=== PATIENT | male | born 1950 | race Caucasian/White ===

== ENCOUNTER 2017-06-10 16:22 | Inpatient (IN) | payer OTHER, MEDICARE, BC ==
[~2017-06-10] VITALS: Ht 177.8 cm; Wt 101.6 kg
[2017-06-10] VITALS (10 sets, daily range): BP systolic 88–122; BP diastolic 50–66; PULSE 62–79; RESP 16–32; TEMP 97.8–98.7; O2SAT 94–98
[2017-06-10] MEDS ORDERED: MORPHINE SULFATE 8 MG/ML INJ ONE (16:38)
[2017-06-10] MEDS ORDERED: ONDANSETRON HCL 4 MG/2 ML VIAL ONE (16:38)
[2017-06-10] MEDS ORDERED: PHYTONADIONE INJ 10 MG in SODIUM CHLORIDE 0.9% INJ 50 ML IV ONE (16:45)
[2017-06-10] MEDS ORDERED: SODIUM CHLORIDE 0.9% FLUSH 10 ML FLUSH IV FLUSH PRN (16:45)
[2017-06-10] MEDS ORDERED: NALOXONE HCL 0.4 MG/ML AMP IV PUSH PRN (16:45)
[2017-06-10] MEDS ORDERED: ENALAPRILAT 1.25 MG/ML VIAL IV PUSH PRN (16:45)
[2017-06-10] MEDS ORDERED: MORPHINE SULFATE 30 MG/30 ML PCA IV SCH (16:45)
[2017-06-10] MEDS ORDERED: ACETAMINOPHEN 325 MG TAB PO PRN (16:45)
[2017-06-10] MEDS ORDERED: MAGNESIUM HYDROXIDE SUSP 30 ML CUP PO PRN (16:45)
[2017-06-10] MEDS ORDERED: CHLORHEXIDINE GLUCONATE 2 % 1 PACK (2 CLOTHS) TOP PRN (16:45)
[2017-06-10] MEDS ORDERED: MISCELLANEOUS NURSING INFORMATION XX SCH (16:45)
[2017-06-10] MEDS ORDERED: ONDANSETRON HCL 4 MG/2 ML VIAL IV PUSH PRN (16:45)
[2017-06-10] MEDS: PCA - TOTAL MG MORPHINE DELIVERED PER SHIFT SCH ×2 (16:45→22:00)
[2017-06-10 16:46] LABS: AUTOMATED NEUTROPHIL # 10.6 TH/MM3 (1.8-7.7); BASOPHIL # 0.1 TH/MM3 (0-0.2); BASOPHIL % 0.6 % (0.0-2.0); EOSINOPHIL # 0.2 TH/MM3 (0-0.4); EOSINOPHIL % 1.2 % (0.0-4.0); HEMO FLAGS DIFF FINAL; LYMPH % 27.3 % (9.0-44.0); LYMPHOCYTE # 4.4 TH/MM3 (1.0-4.8); MEAN CELL VOLUME 92.5 FL (80.0-100.0); MEAN CORPUSCULAR HEMOGLOBIN 29.9 PG (27.0-34.0); MEAN CORPUSCULAR HGB CONC 32.3 % (32.0-36.0); MONO % 4.8 % (0.0-8.0); NEUT % 66.1 % (16.0-70.0); PLATELET COUNT 153 TH/MM3 (150-450); RED BLOOD COUNT 4.22 MIL/MM3 (4.50-5.90)
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
[2017-06-10 16:52] LABS: I-STAT POTASSIUM 3.3 MMOL/L (3.5-4.9)
[2017-06-10 17:01] LABS: APTT (PATIENT) 31.5 SEC (24.3-30.1); INTERNATIONAL NORMALIZED RATIO 2.8 RATIO; PROTHROMBIN TIME - PATIENT 31.9 SEC (9.8-11.6)
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
[2017-06-10] MEDS ORDERED: IOHEXOL 350 MG/ML 10 ML VIAL (for RAD DIAG) IVCONTRAST ONE (17:09)
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
[2017-06-10] MEDS ORDERED: PROTHROMBIN COMPLEX CONC INJ 2,500 UNITS in SYRINGE/BAG 1 EA IV ONE (17:15)
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
[2017-06-10] MEDS ORDERED: POTASSIUM PHOSPHATE MONOBASIC 500 MG TAB PO PRN (17:45)
[2017-06-10] MEDS ORDERED: MAGNESIUM OXIDE 400 MG TAB PO PRN (17:45)
[2017-06-10] MEDS ORDERED: POTASSIUM PHOSPHATE MONOBASIC 500 MG TAB PO/TUBE PRN (17:45)
[2017-06-10] MEDS ORDERED: POTASSIUM CHLORIDE 20 MEQ PWD PACKET PO PRN (17:45)
[2017-06-10] MEDS ORDERED: MAGNESIUM SULFATE INJ 2 GM in SODIUM CHLORIDE 0.9% INJ 96 ML IV PRN (17:45)
[2017-06-10] MEDS ORDERED: POTASSIUM PHOSPHATE INJ 30 MMOL in SODIUM CHLOR 0.9% 250 ML INJ 250 ML IV PRN (17:45)
[2017-06-10] MEDS ORDERED: GLUCAGON 1 MG/ML VIAL OTHER PRN (17:45)
[2017-06-10] MEDS ORDERED: MAGNESIUM SULFATE INJ 4 GM in SODIUM CHLORIDE 0.9% INJ 92 ML IV PRN (17:45)
[2017-06-10] MEDS: LIDOCAINE HCL 5% PATCH T-DERMAL SCH (17:45)
[2017-06-10] MEDS ORDERED: SODIUM PHOSPHATE INJ 30 MMOL in SODIUM CHLOR 0.9% 250 ML INJ 240 ML IV PRN (17:45)
[2017-06-10] MEDS ORDERED: DEXTROSE 50% IN WATER 50 ML VIAL(D50) IV PUSH PRN (17:45)
[2017-06-10] MEDS ORDERED: BISACODYL 10 MG SUPP RECTAL PRN (17:45)
[2017-06-10] MEDS ORDERED: POTASSIUM CHLOR 40 MEQ PREMIX 100 ML IV PRN ×2 (17:45)
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
[2017-06-10] MEDS ORDERED: PANTOPRAZOLE SODIUM 40 MG VIAL IVP SCH (18:00)
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
[2017-06-10] MEDS: SODIUM CHLOR 0.9% 1000 ML INJ 1,000 ML IV SCH (18:46)
[2017-06-10 18:58] LABS: MAGNESIUM 1.7 MG/DL (1.5-2.5)
[2017-06-10] MEDS ORDERED: SODIUM CHLOR 0.9% 250 ML INJ 250 ML IV ONE (19:00)
[2017-06-10 19:27] LABS: AUTOMATED NEUTROPHIL # 25.8 TH/MM3 (1.8-7.7); BASOPHIL # 0.1 TH/MM3 (0-0.2); BASOPHIL % 0.3 % (0.0-2.0); EOSINOPHIL % 0.1 % (0.0-4.0); HEMATOCRIT 30.5 % (39.0-51.0); HEMO FLAGS DIFF FINAL; LYMPH % 6.5 % (9.0-44.0); LYMPHOCYTE # 1.9 TH/MM3 (1.0-4.8); MEAN CELL VOLUME 92.8 FL (80.0-100.0); MEAN CORPUSCULAR HEMOGLOBIN 29.6 PG (27.0-34.0); MEAN CORPUSCULAR HGB CONC 31.9 % (32.0-36.0); MONO % 6.2 % (0.0-8.0); NEUT % 86.9 % (16.0-70.0); PLATELET COUNT 119 TH/MM3 (150-450); RED BLOOD COUNT 3.28 MIL/MM3 (4.50-5.90); RED CELL DISTRIBUTION WIDTH 15.1 % (11.6-17.2); WHITE BLOOD COUNT 29.7 TH/MM3 (4.0-11.0)
[2017-06-10 19:40] LABS: APTT (PATIENT) 25.9 SEC (24.3-30.1); INTERNATIONAL NORMALIZED RATIO 1.2 RATIO; PROTHROMBIN TIME - PATIENT 13.3 SEC (9.8-11.6)
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
[2017-06-10] MEDS ORDERED: MIDAZOLAM HCL 2 MG/2 ML VIAL ONE (20:04)
[2017-06-10] MEDS ORDERED: GELATIN 12 MM/7 MM FOAM I-ARTERIAL ONE (20:30)
[2017-06-10] MEDS ORDERED: IODIXANOL 320 MG/ML 50 ML VIAL (for RAD SPEC) I-ARTERIAL ONE (20:30)
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
[2017-06-10] MEDS: DOCUSATE SODIUM 50 MG/SENNA 8.6 MG TAB PO SCH (21:00)
[2017-06-10] MEDS: BACITRACIN TOP OINT 15 GM TUBE TOP SCH (21:00)
[2017-06-10] MEDS: REMOVE OLD PATCH T-DERMAL SCH (21:00)
[2017-06-10] MEDS ORDERED: DOCUSATE SODIUM 100 MG CAP PO SCH (21:00)
[2017-06-10] MEDS: HYDROmorphone HCL PF 0.5 MG/0.5 ML SYRINGE IV PUSH PRN (21:49)
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
[2017-06-10] MEDS: METHOCARBAMOL 500 MG TAB PO SCH (23:02)
[2017-06-10] MEDS: FAMOTIDINE 20 MG/2 ML VIAL IV PUSH SCH (23:02)
[2017-06-10] MEDS: INSULIN NovoLIN REGULAR SUPPLEMENTAL SCALE SQ SCH (23:03)
[2017-06-11] VITALS (15 sets, daily range): BP systolic 124–163; BP diastolic 66–103; PULSE 73–104; RESP 29–35; TEMP 97.8–98.7; O2SAT 90–96
[2017-06-11] MEDS: HYDROmorphone HCL PF 0.5 MG/0.5 ML SYRINGE IV PUSH PRN ×2 (00:42→19:55)
[2017-06-11 01:01] LABS: HEMATOCRIT 31.9 % (39.0-51.0); REVIEW FLAG FINAL
[2017-06-11] MEDS: SODIUM CHLOR 0.9% 1000 ML INJ 1,000 ML IV SCH ×3 (02:55→23:45)
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
[2017-06-11] MEDS: CHLORHEXIDINE GLUCONATE 2 % 1 PACK (2 CLOTHS) TOP SCH (04:00)
[2017-06-11] MEDS ORDERED: ACETAMINOPHEN/HYDROcodone 325 MG/10 MG TAB PO PRN ×3 (04:30→08:30)
[2017-06-11] MEDS ORDERED: MORPHINE SULFATE 2 MG/ML INJ IV PUSH PRN (04:30)
[2017-06-11] MEDS: METHOCARBAMOL 500 MG TAB PO SCH ×3 (04:45→21:47)
[2017-06-11 05:14] LABS: BASOPHIL % 0.2 % (0.0-2.0); HEMO FLAGS DIFF FINAL; LYMPH % 3.6 % (9.0-44.0); LYMPHOCYTE # 0.8 TH/MM3 (1.0-4.8); MEAN CELL VOLUME 88.4 FL (80.0-100.0); MEAN CORPUSCULAR HEMOGLOBIN 28.7 PG (27.0-34.0); MEAN CORPUSCULAR HGB CONC 32.4 % (32.0-36.0); MONO % 5.5 % (0.0-8.0); NEUT % 90.7 % (16.0-70.0); PLATELET COUNT 103 TH/MM3 (150-450); RED BLOOD COUNT 3.73 MIL/MM3 (4.50-5.90); RED CELL DISTRIBUTION WIDTH 18.2 % (11.6-17.2); WHITE BLOOD COUNT 20.9 TH/MM3 (4.0-11.0)
[2017-06-11 05:27] LABS: INTERNATIONAL NORMALIZED RATIO 1.1 RATIO; PROTHROMBIN TIME - PATIENT 12.6 SEC (9.8-11.6)
[2017-06-11 05:46] LABS: BICARBONATE 21.3 MEQ/L (21.0-32.0); CALCIUM-PROTEIN CORRECTED 7.8 MG/DL (8.5-10.1); POTASSIUM 4.4 MEQ/L (3.5-5.1); TOTAL BILIRUBIN ADULT 1.3 MG/DL (0.2-1.0)
[2017-06-11] MEDS: PCA - TOTAL MG MORPHINE DELIVERED PER SHIFT SCH ×3 (06:00→20:58)
[2017-06-11] MEDS: INSULIN NovoLIN REGULAR SUPPLEMENTAL SCALE SQ SCH ×4 (08:00→20:57)
[2017-06-11] MEDS: ALLOPURINOL 300 MG TAB PO SCH (08:52)
[2017-06-11] MEDS: DOCUSATE SODIUM 50 MG/SENNA 8.6 MG TAB PO SCH ×2 (08:52→19:49)
[2017-06-11] MEDS: LIDOCAINE HCL 5% PATCH T-DERMAL SCH (08:53)
[2017-06-11] MEDS: LACTULOSE SYRUP 20 GM/30 ML CUP PO SCH (09:00)
[2017-06-11] MEDS: DILTIAZEM-CD 240 MG CAP ER PO SCH (09:00)
[2017-06-11] MEDS: BACITRACIN TOP OINT 15 GM TUBE TOP SCH ×2 (09:00→20:58)
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
[2017-06-11] MEDS ORDERED: INFLUENZA VIRUS VACCINE (QUADRIVALENT) 0.5 ML SYR IM ONE (10:00)
[2017-06-11] MEDS ORDERED: NALOXONE HCL 0.4 MG/ML AMP IV PUSH PRN (10:00)
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
[2017-06-11] MEDS: HYDROmorphone HCL PF 1 MG/ML VIAL IV PUSH PRN ×2 (11:13→15:14)
[2017-06-11] MEDS: FAMOTIDINE 20 MG/2 ML VIAL IV PUSH SCH ×2 (11:14→22:44)
[2017-06-11] MEDS: RESP: ALBUTEROL 2.5 MG/IPRATROPIUM 0.5 MG NEB (SCH) NEB ×3 (11:24→20:16)
--- NOTE | 2017-06-11 12:11 | ECHRPT ---
Indication: CONCLUSIONS Normal left ventricular size. Mild concentric left ventricular hypertrophy. The left ventricular systolic function is hyperdynamic with an estimated ejection fraction in the ra nge of 65- 70%. BP: 122 / 65 HR: 97 Rhythm: Sinus MEASUREMENTS (Male / Female) Normal Values Technical Quality:Fair 2D ECHO LV Diastolic Diameter PLAX 5.0 cm 4.2 - 5.9 / 3.9 - 5.3 cm LV Systolic Diameter PLAX 4.0 cm IVS Diastolic Thickness 1.0 cm 0.6 - 1.0 / 0.6 - 0.9 cm LVPW Diastolic Thickness 1.0 cm 0.6 - 1.0 / 0.6 - 0.9 cm LV Relative Wall Thickness 0.4 LVOT Diameter 1.9 cm Aortic Root Diameter 3.2 cm DOPPLER AV Peak Velocity 148.0 cm/s AV Peak Gradient 8.8 mmHg AV Mean Gradient 4.0 mmHg AV Velocity Time Integral 16.2 cm LVOT Peak Velocity 97.0 cm/s LVOT Peak Gradient 3.8 mmHg LVOT Velocity Time Integral 12.6 cm LVOT Cardiac Index 1434.5 cm/minm AV Area Cont Eq vti 2.2 cm AV Area Cont Eq pk 1.9 cm LV E' Lateral Velocity 11.2 cm/s LV E' Septal Velocity 7.1 cm/s TR Peak Velocity 1.4 cm/s TR Peak Gradient 0.0 mmHg FINDINGS LEFT VENTRICLE Normal left ventricular size. Mild concentric left ventricular hypertrophy. The left ventricular systolic function is hyperdynamic with an estimated ejection fraction in the ra nge of 65- 70%. RIGHT VENTRICLE Normal right ventricular size and systolic function. LEFT ATRIUM The left atrial size is normal. RIGHT ATRIUM The right atrial size is normal. ATRIAL SEPTUM Normal atrial septal thickness without atrial level shunting by limited color doppler interrogation. AORTA The aortic root and proximal ascending aorta are normal in size on limited imaging. MITRAL VALVE Structurally normal mitral valve. No mitral valve stenosis or regurgitation. AORTIC VALVE Trileaflet aortic valve. No aortic valve stenosis or regurgitation. TRICUSPID VALVE Structurally normal tricuspid valve. No tricuspid valve stenosis or regurgitation. PULMONARY VALVE The pulmonary valve is not well visualized. VESSELS The inferior vena cava is normal in size. PERICARDIUM No pericardial effusion. Artis Eden MD, FACC (Electronically Signed) Final Date:11 June 2017 12:10
[2017-06-11 12:40] LABS: HEMATOCRIT 29.1 % (39.0-51.0); REVIEW FLAG FINAL
[2017-06-11] MEDS: HYDROmorphone HCL PCA 6 MG/30 ML IV SCH (12:48)
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
[2017-06-11] MEDS: PCA - TOTAL MG DILAUDID DELIVERED PER SHIFT OTHER SCH ×2 (14:00→22:00)
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
[2017-06-11 19:11] LABS: HEMATOCRIT 28.5 % (39.0-51.0)
[2017-06-11 19:20] LABS: REVIEW FLAG FINAL
[2017-06-11] MEDS: REMOVE OLD PATCH T-DERMAL SCH (20:57)
[2017-06-11 21:19] LABS: BLOOD GAS BASE EXCESS -7.3 mmol/L (-2-2); BLOOD GAS CARBOXYHEMOGLOBIN 1.1 % (0-4); BLOOD GAS HCO3 19 mmol/L (22-26); BLOOD GAS O2 HGB SATURATION 86 % (90-100); BLOOD GAS OXYGEN CONTENT 11.6 Vol % (12.0-20.0); BLOOD GAS PCO2 52 mmHg (38-42); BLOOD GAS PO2 61 mmHg (61-120); BLOOD GAS TOTAL HGB 9.5 G/DL (12.0-16.0); TEMP CORR TO 98.6
[2017-06-11 21:22] LABS: CRITICAL VALUE YES; DRAW SITE RT RADIAL; LITER FLOW 10 L/M; NUMBER OF ARTERIAL PUNCTURES 1; OXYGEN DEVICE PRB; STAT YES; ULNAR PULSE PRESENT
[2017-06-11 23:29] LABS: HEMATOCRIT 29.5 % (39.0-51.0)
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
[2017-06-11 23:32] LABS: REVIEW FLAG FINAL
[2017-06-12] VITALS (19 sets, daily range): BP systolic 121–145; BP diastolic 58–74; PULSE 71–95; RESP 23–31; TEMP 97.8–100.7; O2SAT 95–100
[2017-06-12 02:14] LABS: BLOOD GAS BASE EXCESS -5.3 mmol/L (-2-2); BLOOD GAS CARBOXYHEMOGLOBIN 1.1 % (0-4); BLOOD GAS HCO3 20 mmol/L (22-26); BLOOD GAS O2 HGB SATURATION 95 % (90-100); BLOOD GAS OXYGEN CONTENT 12.1 Vol % (12.0-20.0); BLOOD GAS PCO2 39 mmHg (38-42); BLOOD GAS PO2 89 mmHg (61-120); CRITICAL VALUE NO; DRAW SITE LT RADIAL; FIO2 60 %; NUMBER OF ARTERIAL PUNCTURES 1; OXYGEN DEVICE NPPV; STAT NO; TEMP CORR TO 98.6; ULNAR PULSE PRESENT; VENT SETTINGS IPAP12/EPAP5
[2017-06-12] MEDS: RESP: ALBUTEROL 2.5 MG/IPRATROPIUM 0.5 MG NEB (SCH) NEB ×4 (02:48→19:29)
[2017-06-12] MEDS: CHLORHEXIDINE GLUCONATE 2 % 1 PACK (2 CLOTHS) TOP SCH (03:07)
[2017-06-12] MEDS: PCA - TOTAL MG MORPHINE DELIVERED PER SHIFT SCH ×3 (03:07→20:12)
[2017-06-12 04:55] LABS: AUTOMATED NEUTROPHIL # 19.9 TH/MM3 (1.8-7.7); BASOPHIL % 0.1 % (0.0-2.0); HEMATOCRIT 28.3 % (39.0-51.0); LYMPH % 4.8 % (9.0-44.0); LYMPHOCYTE # 1.1 TH/MM3 (1.0-4.8); MEAN CELL VOLUME 89.4 FL (80.0-100.0); MEAN CORPUSCULAR HEMOGLOBIN 29.3 PG (27.0-34.0); MEAN CORPUSCULAR HGB CONC 32.8 % (32.0-36.0); MONO % 9.8 % (0.0-8.0); NEUT % 85.3 % (16.0-70.0); PLATELET COUNT 96 TH/MM3 (150-450); RED BLOOD COUNT 3.17 MIL/MM3 (4.50-5.90); WHITE BLOOD COUNT 23.3 TH/MM3 (4.0-11.0)
[2017-06-12 04:58] LABS: HEMO FLAGS AUTO DIFF
[2017-06-12 05:07] LABS: BICARBONATE 21.4 MEQ/L (21.0-32.0); CALCIUM-PROTEIN CORRECTED 8.1 MG/DL (8.5-10.1); POTASSIUM 4.3 MEQ/L (3.5-5.1); TOTAL BILIRUBIN ADULT 0.5 MG/DL (0.2-1.0)
[2017-06-12 05:30] LABS: BANDS 2 % (0-6); EOSINOPHILS 1 % (0-4); METAMYELOCYTES 4 % (0-1); NEUTROPHIL # MANUAL DIFF 21.4 TH/MM3 (1.8-7.7); PLATELET ESTIMATE SMEAR LOW (NORMAL); PLATELET MORPHOLOGY NORMAL (NORMAL); POLYS (SEG NEUTROPHILS) 86 % (16-70); SCAN/DIFF FINAL DIFF MANUAL; WBC DIFF SAMPLE 100
[2017-06-12] MEDS: PCA - TOTAL MG DILAUDID DELIVERED PER SHIFT OTHER SCH ×3 (05:46→20:13)
[2017-06-12] MEDS: METHOCARBAMOL 500 MG TAB PO SCH ×3 (05:46→20:11)
--- NOTE | 2017-06-12 06:08 | RADRPT ---
EXAM DATE/TIME: 06/12/2017 03:05 [facility] COMPARISON: CHEST SINGLE AP, June 11, 2017, 3:25. INDICATIONS : Difficulty breathing. MEDICAL HISTORY : None. SURGICAL HISTORY : None. ENCOUNTER: Subsequent ACUITY: 3 days PAIN SCORE: 0/10 LOCATION: Bilateral chest FINDINGS: Bilateral mid and lower lung pulmonary opacities are present, left worse in right. Small bilateral pl eural effusions are likely. No pneumothorax. Mild cardiomegaly is stable. CONCLUSION: Worsening consolidation and pleural effusions on both sides. Rojelio Rodriguez MD on June 12, 2017 at 6:06 Board Certified Radiologist. This report was verified electronically.
[2017-06-12] MEDS: LACTULOSE SYRUP 20 GM/30 ML CUP PO SCH (07:48)
[2017-06-12] MEDS: DOCUSATE SODIUM 50 MG/SENNA 8.6 MG TAB PO SCH ×2 (07:48→20:11)
[2017-06-12] MEDS: DILTIAZEM-CD 240 MG CAP ER PO SCH (07:48)
[2017-06-12] MEDS: INSULIN NovoLIN REGULAR SUPPLEMENTAL SCALE SQ SCH ×4 (07:48→20:12)
[2017-06-12] MEDS: ALLOPURINOL 300 MG TAB PO SCH (07:48)
[2017-06-12] MEDS: BACITRACIN TOP OINT 15 GM TUBE TOP SCH ×2 (07:49→20:12)
[2017-06-12] MEDS: LIDOCAINE HCL 5% PATCH T-DERMAL SCH (07:50)
[2017-06-12] MEDS: SODIUM CHLOR 0.9% 1000 ML INJ 1,000 ML IV SCH (07:51)
[2017-06-12 07:53] LABS: BLOOD GAS BASE EXCESS -4.1 mmol/L (-2-2); BLOOD GAS CARBOXYHEMOGLOBIN 1.2 % (0-4); BLOOD GAS HCO3 21 mmol/L (22-26); BLOOD GAS O2 HGB SATURATION 96 % (90-100); BLOOD GAS PCO2 39 mmHg (38-42); BLOOD GAS PO2 115 mmHg (61-120); BLOOD GAS TOTAL HGB 9.5 G/DL (12.0-16.0); CRITICAL VALUE NO; OXYGEN DEVICE BIPAP; TEMP CORR TO 98.6
[2017-06-12 07:54] LABS: DRAW SITE LT RADIAL; FIO2 60 %; NUMBER OF ARTERIAL PUNCTURES 1; STAT NO; ULNAR PULSE Y; VENT SETTINGS 12IPAP/5EPAP
[2017-06-12] MEDS: HYDROmorphone HCL PCA 6 MG/30 ML IV SCH (08:39)
[2017-06-12] MEDS ORDERED: FUROSEMIDE 40 MG/4 ML VIAL IV PUSH ONE (09:00)
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
[2017-06-12] MEDS: POTASSIUM CHLORIDE 25 MEQ EFFERVESCENT TAB PO SCH ×2 (10:00→20:11)
[2017-06-12] MEDS: FAMOTIDINE 20 MG/2 ML VIAL IV PUSH SCH ×2 (11:05→22:05)
[2017-06-12] MEDS: BISACODYL 10 MG SUPP RECTAL SCH (11:06)
[2017-06-12] MEDS: HYDROmorphone HCL PF 1 MG/ML VIAL IV PUSH PRN ×2 (11:41→23:34)
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
[2017-06-12 13:03] LABS: HEMATOCRIT 27.7 % (39.0-51.0)
[2017-06-12 13:04] LABS: REVIEW FLAG FINAL
[2017-06-12] MEDS: FUROSEMIDE 40 MG/4 ML VIAL IV PUSH SCH (17:48)
[2017-06-12] MEDS: REMOVE OLD PATCH T-DERMAL SCH (20:12)
[2017-06-12 23:59] LABS: HEMATOCRIT 26.1 % (39.0-51.0)
[2017-06-13] VITALS (22 sets, daily range): BP systolic 115–154; BP diastolic 56–69; PULSE 65–90; RESP 18–24; TEMP 97.9–99.1; O2SAT 93–99
[2017-06-13 00:01] LABS: REVIEW FLAG FINAL
[2017-06-13] MEDS: HYDROmorphone HCL PCA 6 MG/30 ML IV SCH ×2 (01:58→23:49)
[2017-06-13] MEDS: RESP: ALBUTEROL 2.5 MG/IPRATROPIUM 0.5 MG NEB (SCH) NEB ×4 (03:04→20:00)
[2017-06-13] MEDS: HYDROmorphone HCL PF 1 MG/ML VIAL IV PUSH PRN ×3 (03:29→22:43)
[2017-06-13] MEDS: CHLORHEXIDINE GLUCONATE 2 % 1 PACK (2 CLOTHS) TOP SCH (04:00)
[2017-06-13] MEDS: PCA - TOTAL MG MORPHINE DELIVERED PER SHIFT SCH ×3 (04:13→20:04)
[2017-06-13] MEDS: METHOCARBAMOL 500 MG TAB PO SCH ×3 (04:30→20:03)
[2017-06-13 04:52] LABS: AUTOMATED NEUTROPHIL # 19.3 TH/MM3 (1.8-7.7); BASOPHIL # 0.1 TH/MM3 (0-0.2); BASOPHIL % 0.3 % (0.0-2.0); HEMATOCRIT 25.4 % (39.0-51.0); LYMPH % 3.7 % (9.0-44.0); LYMPHOCYTE # 0.8 TH/MM3 (1.0-4.8); MEAN CELL VOLUME 89.1 FL (80.0-100.0); MEAN CORPUSCULAR HEMOGLOBIN 29.1 PG (27.0-34.0); MEAN CORPUSCULAR HGB CONC 32.6 % (32.0-36.0); MONO % 8.8 % (0.0-8.0); NEUT % 87.2 % (16.0-70.0); PLATELET COUNT 94 TH/MM3 (150-450); RED BLOOD COUNT 2.85 MIL/MM3 (4.50-5.90); RED CELL DISTRIBUTION WIDTH 16.6 % (11.6-17.2); WHITE BLOOD COUNT 22.1 TH/MM3 (4.0-11.0)
[2017-06-13 05:04] LABS: HEMO FLAGS AUTO DIFF
[2017-06-13 05:16] LABS: ANION GAP 10 MEQ/L (5-15); AST (GOT) 52 U/L (15-37); BICARBONATE 21.7 MEQ/L (21.0-32.0); BLOOD UREA NITROGEN 28 MG/DL (7-18); CHLORIDE 107 MEQ/L (98-107); GLOMERULAR FILTRATION RATE 83 ML/MIN (>89); POTASSIUM 3.7 MEQ/L (3.5-5.1); SODIUM (NA) 139 MEQ/L (136-145)
[2017-06-13 05:18] LABS: ALT (GPT) 51 U/L (12-78)
[2017-06-13 05:20] LABS: ALKALINE PHOSPHATASE 70 U/L (45-117); TOTAL BILIRUBIN ADULT 0.9 MG/DL (0.2-1.0)
--- NOTE | 2017-06-13 05:44 | RADRPT ---
EXAM DATE/TIME: 06/13/2017 02:38 [facility] COMPARISON: CHEST SINGLE AP, June 12, 2017, 3:05. INDICATIONS : Respiratory disease. MEDICAL HISTORY : None. SURGICAL HISTORY : None. ENCOUNTER: Subsequent ACUITY: 4 - 6 days PAIN SCORE: Non-responsive. LOCATION: Bilateral chest FINDINGS: A single AP semierect portable view of the chest was obtained. The patient is mildly rotated to the l eft. The heart size remains moderately enlarged. Hazy opacity remains in the perihilar regions and nehemiah th lung bases. Costophrenic angles remain blunted in appearance. The tip of the right costophrenic an gle is cut off the exam. There overlying electrocardiogram leads. CONCLUSION: 1. Single view rotated exam. 2. No significant change. Nakul Rios MD on June 13, 2017 at 5:41 Board Certified Radiologist. This report was verified electronically.
[2017-06-13 05:50] LABS: BANDS 5 % (0-6); BASOPHILS 1 % (0-2); CORRECTED NUCLEATED RBC 1 /100 WBC (0-0); NEUTROPHIL # MANUAL DIFF 20.1 TH/MM3 (1.8-7.7); PLATELET ESTIMATE SMEAR LOW (NORMAL); PLATELET MORPHOLOGY NORMAL (NORMAL); POLYS (SEG NEUTROPHILS) 86 % (16-70); SCAN/DIFF FINAL DIFF MANUAL; WBC DIFF SAMPLE 100
[2017-06-13 05:52] LABS: ACANTHOCYTES OCC (NORMAL); OVALOCYTES 1+ (NORMAL); POLYCHROMASIA 2.5 % (0.0-1.9)
[2017-06-13] MEDS: PCA - TOTAL MG DILAUDID DELIVERED PER SHIFT OTHER SCH ×3 (06:00→20:04)
[2017-06-13] MEDS ORDERED: FUROSEMIDE 40 MG/4 ML VIAL IV PUSH ONE (07:00)
[2017-06-13] MEDS: BACITRACIN TOP OINT 15 GM TUBE TOP SCH ×2 (09:00→20:04)
[2017-06-13] MEDS: BISACODYL 10 MG SUPP RECTAL SCH (09:00)
[2017-06-13] MEDS: FUROSEMIDE 40 MG/4 ML VIAL IV PUSH SCH ×2 (09:00→17:49)
[2017-06-13] MEDS: DILTIAZEM-CD 240 MG CAP ER PO SCH (09:16)
[2017-06-13] MEDS: POTASSIUM CHLORIDE 25 MEQ EFFERVESCENT TAB PO SCH ×2 (09:16→20:03)
[2017-06-13] MEDS: ALLOPURINOL 300 MG TAB PO SCH (09:16)
[2017-06-13] MEDS: DOCUSATE SODIUM 50 MG/SENNA 8.6 MG TAB PO SCH ×2 (09:18→20:03)
[2017-06-13] MEDS: LACTULOSE SYRUP 20 GM/30 ML CUP PO SCH (09:18)
[2017-06-13] MEDS: LIDOCAINE HCL 5% PATCH T-DERMAL SCH (09:19)
[2017-06-13] MEDS ORDERED: SODIUM CHLOR 0.9% 250 ML INJ 250 ML IV ONE (09:30)
[2017-06-13] MEDS: INSULIN NovoLIN REGULAR SUPPLEMENTAL SCALE SQ SCH ×4 (09:49→20:03)
[2017-06-13] MEDS: FAMOTIDINE 20 MG/2 ML VIAL IV PUSH SCH ×2 (10:08→22:31)
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
[2017-06-13] MEDS: RESP: ALBUTEROL 2.5 MG/IPRATROPIUM 0.5 MG NEB (PRN) NEB (12:21)
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
--- NOTE | 2017-06-13 14:13 | RADRPT ---
EXAM DATE/TIME: 06/13/2017 13:36 the [facility] COMPARISON: CT ABDOMEN & PELVIS W CONTRAST, June 10, 2017, 16:40. INDICATIONS : Diffuse abdomen pain, hemoperitoneum. ORAL CONTRAST: No oral contrast ingested. RADIATION DOSE: CTDIvol (mGy) ; Combined studies - Thorax/Abdomen/Pelvis MEDICAL HISTORY : Hypertension. Diabetes mellitus type 2. SURGICAL HISTORY : None. ENCOUNTER: Initial ACUITY: 1 day PAIN SCALE: Non-responsive LOCATION: Bilateral upper quadrant TECHNIQUE: Volumetric scanning of the abdomen and pelvis was performed. Using automated exposure control and ad justment of the mA and/or kV according to patient size, radiation dose was kept as low as reasonably achievable to obtain optimal diagnostic quality images. DICOM format image data is available electro nically for review and comparison. FINDINGS: LOWER LUNGS: See chest CT report. LIVER: Homogeneous density without focal abnormality. Vicarious excretion of contrast in the gallbladder whi ch otherwise appears unremarkable by CT. SPLEEN: Heterogeneous density with perisplenic blood products and single small focus of air likely secondary to recent Gelfoam embolization. PANCREAS: Within normal limits. KIDNEYS: Symmetrical in size with redemonstration of bilateral calcified renal calyceal calculi with the large st on the right measuring 11 mm. No evidence for hydronephrosis. ADRENAL GLANDS: Within normal limits. VASCULAR: There is no aortic aneurysm. BOWEL/MESENTERY: Bowel appear unremarkable. There is small amount of hemoperitoneum in the pelvis, and along the infer ior margins of the spleen and liver. This is only slightly larger in volume in comparison to CT at [facility]. ABDOMINAL WALL: Small anterior abdominal periumbilical hernia containing a small loop of normal-appearing small bowel . RETROPERITONEUM: There is no lymphadenopathy. BLADDER: Decompressed secondary to Adams catheter. REPRODUCTIVE: Within normal limits. INGUINAL: There is no lymphadenopathy or hernia. MUSCULOSKELETAL: Redemonstration of L1 and L2 left transverse process fractures as well as fractures of multiple lower left-sided ribs. CONCLUSION: 1. Heterogeneous splenic parenchyma containing a small focus of air with perisplenic hematoma consist ent with recent Gelfoam embolization of splenic parenchymal hemorrhage. 2. Small amount of hemoperitoneum, mildly increased since original CT examination. This likely reflec ts hemorrhage prior to embolization of the spleen. However, intercurrent hemorrhage cannot be entirel y excluded. Additionally, active hemorrhage cannot be evaluated for due to lack of IV contrast on thi s exam. Clinical correlation with hemodynamic status and H&H levels is recommended. 3. Redemonstration of L1 and L2 left transverse process fractures and multiple left lower rib fractur es. 4. Redemonstration of nonobstructing calyceal renal calculi measuring up to 11 mm on the right. Jelani Westfall MD on June 13, 2017 at 13:58 Board Certified Radiologist. This report was verified electronically.
[2017-06-13 18:27] LABS: HEMATOCRIT 25.9 % (39.0-51.0)
[2017-06-13 18:39] LABS: REVIEW FLAG FINAL
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
[2017-06-14] VITALS (16 sets, daily range): BP systolic 132–150; BP diastolic 63–72; PULSE 76–93; RESP 18–28; TEMP 97.8–99; O2SAT 96–100
[2017-06-14] MEDS: HYDROmorphone HCL PF 1 MG/ML VIAL IV PUSH PRN ×2 (02:33→21:52)
[2017-06-14] MEDS: RESP: ALBUTEROL 2.5 MG/IPRATROPIUM 0.5 MG NEB (SCH) NEB ×4 (03:13→20:14)
[2017-06-14] MEDS: CHLORHEXIDINE GLUCONATE 2 % 1 PACK (2 CLOTHS) TOP SCH (04:00)
[2017-06-14] MEDS: PCA - TOTAL MG DILAUDID DELIVERED PER SHIFT OTHER SCH ×3 (04:04→21:07)
[2017-06-14] MEDS: METHOCARBAMOL 500 MG TAB PO SCH ×3 (04:04→20:04)
[2017-06-14] MEDS: REMOVE OLD PATCH T-DERMAL SCH (04:49)
[2017-06-14 05:30] LABS: BASOPHIL % 0.3 % (0.0-2.0); HEMATOCRIT 28.4 % (39.0-51.0); LYMPH % 5.6 % (9.0-44.0); MEAN CELL VOLUME 89.2 FL (80.0-100.0); MEAN CORPUSCULAR HEMOGLOBIN 29.8 PG (27.0-34.0); MEAN CORPUSCULAR HGB CONC 33.4 % (32.0-36.0); MONO % 12.4 % (0.0-8.0); NEUT % 81.7 % (16.0-70.0); PLATELET COUNT 91 TH/MM3 (150-450); RED BLOOD COUNT 3.18 MIL/MM3 (4.50-5.90); RED CELL DISTRIBUTION WIDTH 16.9 % (11.6-17.2); WHITE BLOOD COUNT 17.1 TH/MM3 (4.0-11.0)
[2017-06-14 05:35] LABS: HEMO FLAGS AUTO DIFF
[2017-06-14 05:47] LABS: ANION GAP 11 MEQ/L (5-15); AST (GOT) 33 U/L (15-37); BICARBONATE 22.2 MEQ/L (21.0-32.0); BLOOD UREA NITROGEN 33 MG/DL (7-18); CHLORIDE 106 MEQ/L (98-107); GLOMERULAR FILTRATION RATE 104 ML/MIN (>89); POTASSIUM 3.3 MEQ/L (3.5-5.1); SODIUM (NA) 139 MEQ/L (136-145)
[2017-06-14 05:51] LABS: ALKALINE PHOSPHATASE 69 U/L (45-117); ALT (GPT) 40 U/L (12-78); TOTAL BILIRUBIN ADULT 1.3 MG/DL (0.2-1.0)
--- NOTE | 2017-06-14 05:59 | RADRPT ---
EXAM DATE/TIME: 06/14/2017 04:38 [facility] COMPARISON: CHEST SINGLE AP, June 13, 2017, 2:38. INDICATIONS : Chest pain after trauma with known consolidation multiple left rib fractures. MEDICAL HISTORY : None. SURGICAL HISTORY : None. ENCOUNTER: Subsequent ACUITY: 3 days PAIN SCORE: 6/10 LOCATION: Bilateral chest FINDINGS: A single AP semierect view of the chest was obtained and again demonstrates cardiomegaly and hazy [place] in the perihilar regions and both lung bases. There is no visualized pneumothorax. Multiple left rib fractures are again noted. There are overlying electrocardiogram leads. The patient is mildly ro tated. The heart size remains mildly enlarged. There are atherosclerotic calcifications in the aorta. CONCLUSION: 1. Multiple left rib fractures with no visualized pneumothorax. 2. Cardiomegaly with abnormal opacity remaining in both lungs. Nakul Rios MD on June 14, 2017 at 5:55 Board Certified Radiologist. This report was verified electronically.
[2017-06-14] MEDS: PCA - TOTAL MG MORPHINE DELIVERED PER SHIFT SCH ×3 (06:00→21:07)
[2017-06-14] MEDS: INSULIN NovoLIN REGULAR SUPPLEMENTAL SCALE SQ SCH ×4 (08:00→20:05)
[2017-06-14 08:17] LABS: BANDS 4 % (0-6); CORRECTED NUCLEATED RBC 1 /100 WBC (0-0); NEUTROPHIL # MANUAL DIFF 15.4 TH/MM3 (1.8-7.7); POLYS (SEG NEUTROPHILS) 86 % (16-70); WBC DIFF SAMPLE 100
[2017-06-14 08:18] LABS: PLATELET ESTIMATE SMEAR LOW (NORMAL); PLATELET MORPHOLOGY NORMAL (NORMAL); SCAN/DIFF FINAL DIFF MANUAL
[2017-06-14] MEDS: POTASSIUM CHLORIDE 25 MEQ EFFERVESCENT TAB PO SCH ×2 (08:38→20:04)
[2017-06-14] MEDS: ALLOPURINOL 300 MG TAB PO SCH (08:38)
[2017-06-14] MEDS: DOCUSATE SODIUM 50 MG/SENNA 8.6 MG TAB PO SCH ×2 (08:38→20:04)
[2017-06-14] MEDS: DILTIAZEM-CD 240 MG CAP ER PO SCH (08:38)
[2017-06-14] MEDS: FUROSEMIDE 40 MG/4 ML VIAL IV PUSH SCH ×2 (08:40→19:19)
[2017-06-14] MEDS: LIDOCAINE HCL 5% PATCH T-DERMAL SCH (08:41)
[2017-06-14] MEDS: POTASSIUM CHLOR 20 MEQ PREMIX 100 ML IV PRN (08:42)
[2017-06-14] MEDS: LACTULOSE SYRUP 20 GM/30 ML CUP PO SCH (08:44)
[2017-06-14] MEDS: BISACODYL 10 MG SUPP RECTAL SCH (08:44)
[2017-06-14] MEDS: BACITRACIN TOP OINT 15 GM TUBE TOP SCH ×2 (08:45→20:05)
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
[2017-06-14] MEDS: FAMOTIDINE 20 MG/2 ML VIAL IV PUSH SCH ×2 (11:37→21:52)
[2017-06-14] MEDS: HYDROmorphone HCL PCA 6 MG/30 ML IV SCH (13:22)
[2017-06-14] MEDS ORDERED: POTASSIUM CHLORIDE 25 MEQ EFFERVESCENT TAB PO ONE (13:45)
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
[2017-06-14] MEDS ORDERED: Vancomycin Consult Pharmacy 1 EA OTHER SCH (15:15)
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
[2017-06-14] MEDS ORDERED: VANCOMYCIN INJ 1,250 MG in SODIUM CHLOR 0.9% 250 ML INJ 250 ML IV ONE (16:00)
[2017-06-14] MEDS: CEFEPIME INJ 1,000 MG in SODIUM CHLORIDE 0.9% INJ 100 ML IV SCH (16:09)
[2017-06-14] MEDS: ENOXAPARIN SODIUM 30 MG/0.3 ML SYRINGE SQ SCH (16:17)
[2017-06-15] VITALS (18 sets, daily range): BP systolic 116–158; BP diastolic 65–85; PULSE 80–96; RESP 18–24; TEMP 98.1–100; O2SAT 95–100
[2017-06-15] MEDS: ENOXAPARIN SODIUM 30 MG/0.3 ML SYRINGE SQ SCH ×2 (03:14→15:41)
[2017-06-15] MEDS: VANCOMYCIN INJ 2,000 MG in SODIUM CHLORID 0.9% 500 ML INJ 500 ML IV SCH ×2 (03:14→16:14)
[2017-06-15] MEDS: REMOVE OLD PATCH T-DERMAL SCH ×2 (03:14→21:42)
[2017-06-15] MEDS: HYDROmorphone HCL PF 1 MG/ML VIAL IV PUSH PRN ×2 (03:14→23:23)
[2017-06-15] MEDS: RESP: ALBUTEROL 2.5 MG/IPRATROPIUM 0.5 MG NEB (SCH) NEB ×2 (03:45→08:04)
[2017-06-15] MEDS: CHLORHEXIDINE GLUCONATE 2 % 1 PACK (2 CLOTHS) TOP SCH (03:47)
[2017-06-15] MEDS: PCA - TOTAL MG DILAUDID DELIVERED PER SHIFT OTHER SCH ×3 (04:10→22:28)
[2017-06-15] MEDS: CEFEPIME INJ 1,000 MG in SODIUM CHLORIDE 0.9% INJ 100 ML IV SCH (04:10)
[2017-06-15] MEDS: METHOCARBAMOL 500 MG TAB PO SCH ×3 (04:10→21:40)
[2017-06-15] MEDS: HYDROmorphone HCL PCA 6 MG/30 ML IV SCH (05:03)
[2017-06-15] MEDS: PCA - TOTAL MG MORPHINE DELIVERED PER SHIFT SCH ×4 (06:00→22:00)
[2017-06-15 06:24] LABS: BASOPHIL % 0.2 % (0.0-2.0); EOSINOPHIL # 0.1 TH/MM3 (0-0.4); EOSINOPHIL % 0.4 % (0.0-4.0); LYMPHOCYTE # 1.1 TH/MM3 (1.0-4.8); MEAN CELL VOLUME 88.2 FL (80.0-100.0); MEAN CORPUSCULAR HEMOGLOBIN 30.1 PG (27.0-34.0); MEAN CORPUSCULAR HGB CONC 34.1 % (32.0-36.0); NEUT % 75.4 % (16.0-70.0); PLATELET COUNT 107 TH/MM3 (150-450); RED BLOOD COUNT 3.06 MIL/MM3 (4.50-5.90); RED CELL DISTRIBUTION WIDTH 16.8 % (11.6-17.2); WHITE BLOOD COUNT 15.9 TH/MM3 (4.0-11.0)
[2017-06-15 06:25] LABS: HEMO FLAGS AUTO DIFF
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
[2017-06-15 06:53] LABS: ALT (GPT) 34 U/L (12-78); ANION GAP 10 MEQ/L (5-15); AST (GOT) 22 U/L (15-37); BLOOD UREA NITROGEN 30 MG/DL (7-18); CHLORIDE 103 MEQ/L (98-107); GLOMERULAR FILTRATION RATE 130 ML/MIN (>89); MAGNESIUM 2.2 MG/DL (1.5-2.5); POTASSIUM 3.3 MEQ/L (3.5-5.1); SODIUM (NA) 140 MEQ/L (136-145)
[2017-06-15 06:55] LABS: ALKALINE PHOSPHATASE 72 U/L (45-117); TOTAL BILIRUBIN ADULT 1.7 MG/DL (0.2-1.0)
[2017-06-15 07:30] LABS: BANDS 1 % (0-6); CORRECTED NUCLEATED RBC 2 /100 WBC (0-0); MYELOCYTES 1 % (0-0); NEUTROPHIL # MANUAL DIFF 14.2 TH/MM3 (1.8-7.7); PLATELET ESTIMATE SMEAR LOW (NORMAL); POLYS (SEG NEUTROPHILS) 87 % (16-70); WBC DIFF SAMPLE 100
[2017-06-15 07:31] LABS: PLATELET MORPHOLOGY ENLARGED (NORMAL)
[2017-06-15 07:33] LABS: OVALOCYTES 1+ (NORMAL); SCAN/DIFF FINAL DIFF MANUAL
[2017-06-15] MEDS: INSULIN NovoLIN REGULAR SUPPLEMENTAL SCALE SQ SCH ×4 (08:00→21:38)
[2017-06-15] MEDS: LACTULOSE SYRUP 20 GM/30 ML CUP PO SCH (09:40)
[2017-06-15] MEDS: FUROSEMIDE 40 MG/4 ML VIAL IV PUSH SCH ×2 (09:41→17:30)
[2017-06-15] MEDS: DILTIAZEM-CD 240 MG CAP ER PO SCH (09:41)
[2017-06-15] MEDS: ALLOPURINOL 300 MG TAB PO SCH (09:41)
[2017-06-15] MEDS: DOCUSATE SODIUM 50 MG/SENNA 8.6 MG TAB PO SCH ×2 (09:41→21:40)
[2017-06-15] MEDS: BISACODYL 10 MG SUPP RECTAL SCH (09:41)
[2017-06-15] MEDS: POTASSIUM CHLORIDE 25 MEQ EFFERVESCENT TAB PO SCH ×2 (09:41→21:40)
[2017-06-15] MEDS: LIDOCAINE HCL 5% PATCH T-DERMAL SCH (09:47)
[2017-06-15] MEDS: HYDROmorphone HCL PF 0.5 MG/0.5 ML SYRINGE IV PUSH PRN (09:47)
[2017-06-15] MEDS: BACITRACIN TOP OINT 15 GM TUBE TOP SCH ×2 (09:48→21:41)
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
[2017-06-15] MEDS: FAMOTIDINE 20 MG/2 ML VIAL IV PUSH SCH ×2 (10:55→22:19)
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
[2017-06-15] MEDS: CEFEPIME INJ 2,000 MG in SODIUM CHLORIDE 0.9% INJ 100 ML IV SCH ×2 (15:19→21:40)
[2017-06-15] MEDS: POTASSIUM CHLOR 20 MEQ PREMIX 100 ML IV PRN ×2 (17:34→18:46)
[2017-06-16] VITALS (14 sets, daily range): BP systolic 129–146; BP diastolic 68–76; PULSE 80–94; RESP 23–28; TEMP 97.1–98.9; O2SAT 93–97
[2017-06-16] MEDS: HYDROmorphone HCL PCA 6 MG/30 ML IV SCH (00:53)
[2017-06-16] MEDS ORDERED: PHARMACY ORDERED LAB ONE (03:45)
[2017-06-16] MEDS: CHLORHEXIDINE GLUCONATE 2 % 1 PACK (2 CLOTHS) TOP SCH (04:00)
[2017-06-16] MEDS: ENOXAPARIN SODIUM 30 MG/0.3 ML SYRINGE SQ SCH ×2 (04:51→17:36)
[2017-06-16] MEDS: CEFEPIME INJ 2,000 MG in SODIUM CHLORIDE 0.9% INJ 100 ML IV SCH ×3 (05:05→22:20)
[2017-06-16] MEDS: VANCOMYCIN INJ 2,000 MG in SODIUM CHLORID 0.9% 500 ML INJ 500 ML IV SCH ×2 (05:26→17:34)
[2017-06-16] MEDS: PCA - TOTAL MG MORPHINE DELIVERED PER SHIFT SCH (05:27)
[2017-06-16] MEDS: METHOCARBAMOL 500 MG TAB PO SCH ×3 (05:29→21:05)
[2017-06-16 05:42] LABS: ANION GAP 9 MEQ/L (5-15); AST (GOT) 20 U/L (15-37); BICARBONATE 28.5 MEQ/L (21.0-32.0); BLOOD UREA NITROGEN 27 MG/DL (7-18); CHLORIDE 103 MEQ/L (98-107); GLOMERULAR FILTRATION RATE 125 ML/MIN (>89); POTASSIUM 3.2 MEQ/L (3.5-5.1); SODIUM (NA) 140 MEQ/L (136-145)
[2017-06-16 05:46] LABS: ALKALINE PHOSPHATASE 68 U/L (45-117); ALT (GPT) 26 U/L (12-78); TOTAL BILIRUBIN ADULT 2.4 MG/DL (0.2-1.0)
[2017-06-16 05:48] LABS: AUTOMATED NEUTROPHIL # 14.3 TH/MM3 (1.8-7.7); BASOPHIL % 0.1 % (0.0-2.0); EOSINOPHIL % 0.1 % (0.0-4.0); HEMATOCRIT 29.8 % (39.0-51.0); LYMPH % 5.8 % (9.0-44.0); MEAN CELL VOLUME 89.1 FL (80.0-100.0); MEAN CORPUSCULAR HEMOGLOBIN 29.1 PG (27.0-34.0); MEAN CORPUSCULAR HGB CONC 32.7 % (32.0-36.0); MONO % 15.1 % (0.0-8.0); NEUT % 78.9 % (16.0-70.0); PLATELET COUNT 142 TH/MM3 (150-450); RED BLOOD COUNT 3.35 MIL/MM3 (4.50-5.90); RED CELL DISTRIBUTION WIDTH 16.5 % (11.6-17.2); WHITE BLOOD COUNT 18.1 TH/MM3 (4.0-11.0)
--- NOTE | 2017-06-16 05:52 | RADRPT ---
EXAM DATE/TIME: 06/16/2017 04:37 [facility] COMPARISON: CHEST SINGLE AP, June 15, 2017, 5:13. INDICATIONS : Short of breath. MEDICAL HISTORY : None. SURGICAL HISTORY : None. ENCOUNTER: Subsequent ACUITY: 1 week PAIN SCORE: 0/10 LOCATION: Bilateral chest FINDINGS: The cardiac silhouette is enlarged. There is diffuse increased density seen throughout the lungs. The re is silhouetting of the left hemidiaphragm. Old left rib fractures are seen. CONCLUSION: Diffuse consolidation likely representing diffuse processes such as edema. Rojelio Barrow MD on June 16, 2017 at 5:47 Board Certified Radiologist. This report was verified electronically.
[2017-06-16] MEDS: PCA - TOTAL MG DILAUDID DELIVERED PER SHIFT OTHER SCH (05:53)
[2017-06-16 05:59] LABS: HEMO FLAGS AUTO DIFF
[2017-06-16] MEDS: INSULIN NovoLIN REGULAR SUPPLEMENTAL SCALE SQ SCH ×4 (08:00→21:24)
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
[2017-06-16] MEDS: RESP: ALBUTEROL 2.5 MG/IPRATROPIUM 0.5 MG NEB (PRN) NEB (08:10)
[2017-06-16] MEDS: DILTIAZEM-CD 240 MG CAP ER PO SCH (08:38)
[2017-06-16] MEDS: POTASSIUM CHLORIDE 25 MEQ EFFERVESCENT TAB PO SCH ×2 (08:38→21:05)
[2017-06-16] MEDS: DOCUSATE SODIUM 50 MG/SENNA 8.6 MG TAB PO SCH ×2 (08:38→21:05)
[2017-06-16] MEDS: ALLOPURINOL 300 MG TAB PO SCH (08:38)
[2017-06-16] MEDS: BISACODYL 10 MG SUPP RECTAL SCH (08:38)
[2017-06-16] MEDS: POTASSIUM CHLOR 20 MEQ PREMIX 100 ML IV PRN ×4 (08:38→19:58)
[2017-06-16] MEDS: LACTULOSE SYRUP 20 GM/30 ML CUP PO SCH (08:39)
[2017-06-16] MEDS: FUROSEMIDE 40 MG/4 ML VIAL IV PUSH SCH ×2 (08:39→17:36)
[2017-06-16] MEDS: LIDOCAINE HCL 5% PATCH T-DERMAL SCH (08:39)
[2017-06-16] MEDS: BACITRACIN TOP OINT 15 GM TUBE TOP SCH ×2 (08:40→21:06)
[2017-06-16 08:49] LABS: BANDS 5 % (0-6); CORRECTED NUCLEATED RBC 5 /100 WBC (0-0); NEUTROPHIL # MANUAL DIFF 15.9 TH/MM3 (1.8-7.7); POLYS (SEG NEUTROPHILS) 83 % (16-70); WBC DIFF SAMPLE 100
[2017-06-16 08:52] LABS: PLATELET ESTIMATE SMEAR LOW (NORMAL)
[2017-06-16 08:55] LABS: PLATELET MORPHOLOGY NORMAL (NORMAL); SCAN/DIFF FINAL DIFF MANUAL
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
[2017-06-16] MEDS: ACETAMINOPHEN/HYDROcodone 325 MG/10 MG TAB PO PRN ×2 (12:39→17:37)
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
[2017-06-16] MEDS: HYDROmorphone HCL PF 1 MG/ML VIAL IV PUSH PRN (20:01)
[2017-06-16] MEDS: REMOVE OLD PATCH T-DERMAL SCH (21:06)
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
[2017-06-17] VITALS (18 sets, daily range): BP systolic 136–156; BP diastolic 73–76; PULSE 70–87; RESP 22–25; TEMP 97.7–98; O2SAT 93–99
[2017-06-17] MEDS: ACETAMINOPHEN/HYDROcodone 325 MG/5 MG TAB PO PRN (01:30)
[2017-06-17] MEDS: VANCOMYCIN INJ 2,000 MG in SODIUM CHLORID 0.9% 500 ML INJ 500 ML IV SCH ×2 (03:59→15:32)
[2017-06-17] MEDS: ENOXAPARIN SODIUM 30 MG/0.3 ML SYRINGE SQ SCH (03:59)
[2017-06-17] MEDS: CHLORHEXIDINE GLUCONATE 2 % 1 PACK (2 CLOTHS) TOP SCH (03:59)
[2017-06-17] MEDS: HYDROmorphone HCL PF 1 MG/ML VIAL IV PUSH PRN (04:00)
[2017-06-17] MEDS: METHOCARBAMOL 500 MG TAB PO SCH ×3 (05:40→21:07)
[2017-06-17 05:45] LABS: AUTOMATED NEUTROPHIL # 18.3 TH/MM3 (1.8-7.7); BASOPHIL % 0.1 % (0.0-2.0); EOSINOPHIL # 0.1 TH/MM3 (0-0.4); EOSINOPHIL % 0.2 % (0.0-4.0); HEMATOCRIT 30.7 % (39.0-51.0); LYMPH % 4.2 % (9.0-44.0); LYMPHOCYTE # 0.9 TH/MM3 (1.0-4.8); MEAN CELL VOLUME 89.3 FL (80.0-100.0); MEAN CORPUSCULAR HEMOGLOBIN 29.2 PG (27.0-34.0); MEAN CORPUSCULAR HGB CONC 32.7 % (32.0-36.0); MONO % 12.1 % (0.0-8.0); NEUT % 83.4 % (16.0-70.0); PLATELET COUNT 160 TH/MM3 (150-450); RED BLOOD COUNT 3.44 MIL/MM3 (4.50-5.90); RED CELL DISTRIBUTION WIDTH 16.5 % (11.6-17.2)
[2017-06-17 05:48] LABS: HEMO FLAGS AUTO DIFF
--- NOTE | 2017-06-17 05:49 | RADRPT ---
EXAM DATE/TIME: 06/17/2017 05:03 [facility] COMPARISON: CT THORAX W/O CONTRAST, June 13, 2017, 13:34. CHEST SINGLE AP, June 16, 2017, 4:37. INDICATIONS : Short of breath. MEDICAL HISTORY : None. SURGICAL HISTORY : None. ENCOUNTER: Subsequent ACUITY: 1 week PAIN SCORE: Non-responsive. LOCATION: Bilateral chest FINDINGS: The heart size is enlarged. There is increased density at the bases bilaterally being worse in the le ft and at the left midlung. There is silhouetting of the left hemidiaphragm. Some degree of left effu [place] can be considered. Old left rib fractures are present. CONCLUSION: Consolidation at the bases and left midlung. The consolidations are worse on the left. This could rep resent diffuse processes such as edema or inflammatory/infectious process. When compared to the prior exam, there is some improved aeration in the right lung. Rojelio Barrow MD on June 17, 2017 at 5:45 Board Certified Radiologist. This report was verified electronically.
[2017-06-17] MEDS: CEFEPIME INJ 2,000 MG in SODIUM CHLORIDE 0.9% INJ 100 ML IV SCH ×3 (06:20→21:07)
[2017-06-17 06:21] LABS: BICARBONATE 27.9 MEQ/L (21.0-32.0); MAGNESIUM 2.1 MG/DL (1.5-2.5); POTASSIUM 3.3 MEQ/L (3.5-5.1)
[2017-06-17 06:25] LABS: INDIRECT BILIRUBIN 1.4 MG/DL (0.0-0.8)
[2017-06-17] MEDS: ACETAMINOPHEN/HYDROcodone 325 MG/10 MG TAB PO PRN ×5 (06:27→23:31)
[2017-06-17] MEDS: POTASSIUM CHLOR 20 MEQ PREMIX 100 ML IV PRN ×2 (07:11→10:12)
[2017-06-17 07:35] LABS: PLATELET ESTIMATE SMEAR NORMAL (NORMAL); PLATELET MORPHOLOGY NORMAL (NORMAL); POLYCHROMASIA 2.4 % (0.0-1.9); SCAN/DIFF AUTO DIFF CONFIRMED
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
[2017-06-17] MEDS: INSULIN NovoLIN REGULAR SUPPLEMENTAL SCALE SQ SCH ×4 (08:30→21:00)
[2017-06-17] MEDS: BISACODYL 10 MG SUPP RECTAL SCH (09:22)
[2017-06-17] MEDS: LACTULOSE SYRUP 20 GM/30 ML CUP PO SCH (09:22)
[2017-06-17] MEDS: ALLOPURINOL 300 MG TAB PO SCH (09:23)
[2017-06-17] MEDS: POTASSIUM CHLORIDE 25 MEQ EFFERVESCENT TAB PO SCH ×2 (09:23→21:06)
[2017-06-17] MEDS: DOCUSATE SODIUM 50 MG/SENNA 8.6 MG TAB PO SCH ×2 (09:23→21:07)
[2017-06-17] MEDS: DILTIAZEM-CD 240 MG CAP ER PO SCH (09:23)
[2017-06-17] MEDS: BACITRACIN TOP OINT 15 GM TUBE TOP SCH ×2 (09:24→21:07)
[2017-06-17] MEDS: LIDOCAINE HCL 5% PATCH T-DERMAL SCH (09:24)
[2017-06-17] MEDS: FUROSEMIDE 40 MG/4 ML VIAL IV PUSH SCH ×2 (09:24→17:52)
[2017-06-17] MEDS: MUPIROCIN 2% OINT 1 APPLIC/GM SYR EACH NARE SCH ×2 (11:17→21:06)
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
[2017-06-17] MEDS ORDERED: POTASSIUM PHOSPHATE INJ 30 MMOL in SODIUM CHLOR 0.9% 250 ML INJ 250 ML IV ONE (14:30)
--- NOTE | 2017-06-17 15:40 | HHI.IDPN ---
Subjective Subjective Remarks t is doing better breathing [place], going down on O2 requrements no fever diarrhea 6 BMs/day doi Antibiotics vanco cefepime Allergies: Coded Allergies: No Known Allergies (Unverified , 06/14/17) Objective . Vital Signs Date Time Temp Pulse Resp B/P (MAP) Pulse Ox O2 Delivery O2 Flow Rate FiO2 06/17/17 14:00 76 06/17/17 12:44 94 High Flow Nasal Cannula 20.00 40 06/17/17 12:00 98.0 87 22 136/73 (94) 95 06/17/17 12:00 87 06/17/17 11:20 95 High Flow Nasal Cannula 30.00 40 06/17/17 10:00 82 06/17/17 08:10 96 High Flow Nasal Cannula 30.00 50 06/17/17 08:00 97.7 84 25 151/76 (101) 98 06/17/17 08:00 84 06/17/17 07:00 96 Nasal Cannula 30.00 60 06/17/17 06:00 83 06/17/17 04:00 86 06/17/17 04:00 97.7 86 25 154/74 (100) 96 06/17/17 02:00 82 06/17/17 00:06 99 High Flow Nasal Cannula 30.00 60 06/17/17 00:00 84 06/17/17 00:00 97.9 84 24 150/74 (99) 98 06/16/17 22:00 82 06/16/17 21:40 93 40 06/16/17 20:31 26 06/16/17 20:00 84 06/16/17 20:00 97.9 82 28 141/71 (94) 93 06/16/17 19:00 100 Nasal Cannula 30.00 50 06/16/17 18:00 84 06/16/17 16:00 82 06/16/17 16:00 98.9 82 23 144/68 (93) 93 06/17/17 06/17/17 06/18/17 15:00 23:00 07:00 Intake Total 200 ml Balance 200 ml IV Total 200 ml . Laboratory Tests Test 06/16/17 04:36 06/17/17 04:59 White Blood Count 18.1 TH/MM3 22.0 TH/MM3 Red Blood Count 3.35 MIL/MM3 3.44 MIL/MM3 Hemoglobin 9.7 GM/DL 10.0 GM/DL Hematocrit 29.8 % 30.7 % Mean Corpuscular Volume 89.1 FL 89.3 FL Mean Corpuscular Hemoglobin 29.1 PG 29.2 PG Mean Corpuscular Hemoglobin Concent 32.7 % 32.7 % Red Cell Distribution Width 16.5 % 16.5 % Platelet Count 142 TH/MM3 160 TH/MM3 Mean Platelet Volume 9.4 FL 9.6 FL Neutrophils (%) (Auto) 78.9 % 83.4 % Lymphocytes (%) (Auto) 5.8 % 4.2 % Monocytes (%) (Auto) 15.1 % 12.1 % Eosinophils (%) (Auto) 0.1 % 0.2 % Basophils (%) (Auto) 0.1 % 0.1 % Neutrophils # (Auto) 14.3 TH/MM3 18.3 TH/MM3 Lymphocytes # (Auto) 1.0 TH/MM3 0.9 TH/MM3 Monocytes # (Auto) 2.7 TH/MM3 2.7 TH/MM3 Eosinophils # (Auto) 0.0 TH/MM3 0.1 TH/MM3 Basophils # (Auto) 0.0 TH/MM3 0.0 TH/MM3 CBC Comment AUTO DIFF AUTO DIFF Differential Total Cells Counted 100 Neutrophils % (Manual) 83 % Band Neutrophils % 5 % Lymphocytes % 4 % Monocytes % 8 % Neutrophils # (Manual) 15.9 TH/MM3 Nucleated Red Blood Cells 5 /100 WBC Differential Comment FINAL DIFF MANUAL AUTO DIFF CONFIRMED Platelet Estimate LOW NORMAL Platelet Morphology Comment NORMAL NORMAL Polychromasia 2.4 % Laboratory Tests Test 06/16/17 04:36 06/17/17 04:59 Blood Urea Nitrogen 27 MG/DL 26 MG/DL Creatinine 0.64 MG/DL 0.67 MG/DL Random Glucose 160 MG/DL 164 MG/DL Total Protein 6.2 GM/DL 6.0 GM/DL Albumin 2.4 GM/DL 2.2 GM/DL Calcium Level 7.9 MG/DL 7.8 MG/DL Alkaline Phosphatase 68 U/L 85 U/L Aspartate Amino Transf (AST/SGOT) 20 U/L 27 U/L Alanine Aminotransferase (ALT/SGPT) 26 U/L 21 U/L Total Bilirubin 2.4 MG/DL 3.0 MG/DL Sodium Level 140 MEQ/L 138 MEQ/L Potassium Level 3.2 MEQ/L 3.3 MEQ/L Chloride Level 103 MEQ/L 101 MEQ/L Carbon Dioxide Level 28.5 MEQ/L 27.9 MEQ/L Anion Gap 9 MEQ/L 9 MEQ/L Estimat Glomerular Filtration Rate 125 ML/MIN 119 ML/MIN Phosphorus Level 1.0 MG/DL Magnesium Level 2.1 MG/DL Direct Bilirubin 1.6 MG/DL Indirect Bilirubin 1.4 MG/DL Imaging Last Impressions Chest X-Ray 06/17/17 0600 Signed Impressions: Service Date/Time: Saturday, June 17, 2017 05:03 - CONCLUSION: Consolidation at the bases and left midlung. The consolidations are worse on the left. This could represent diffuse processes such as edema or inflammatory/infectious process. When compared to the prior exam, there is some improved aeration in the right lung. Rojelio Barrow MD Thoracic Spine X-Ray 06/16/17 0000 Signed Impressions: Service Date/Time: Friday, June 16, 2017 17:12 - CONCLUSION: 1. Fracture through the upper half of the T8 vertebral body. 2. Multilevel flowing osteophytes of the dorsal spine characteristic of DISH. 3. Airspace consolidation, most prominent in the medial right base. Baldo Meneses MD Chest CT 06/13/17 0000 Signed Impressions: Service Date/Time: Tuesday, June 13, 2017 13:34 - CONCLUSION: Extensive areas of consolidation throughout the lower lobes left greater than right. Moderate-sized left pleural effusion. Multiple left-sided rib fractures. Or consolidated lung no pleural effusions. No mediastinal hematomas identified. There is residual hemorrhage surrounding the spleen. Artis Villanueva MD Abdomen/Pelvis CT 06/13/17 0000 Signed Impressions: Service Date/Time: Tuesday, June 13, 2017 13:36 - CONCLUSION: 1. Heterogeneous splenic parenchyma containing a small focus of air with perisplenic hematoma consistent with recent Gelfoam embolization of splenic parenchymal hemorrhage. 2. Small amount of hemoperitoneum, mildly increased since original CT examination. This likely reflects hemorrhage prior to embolization of the spleen. However, intercurrent hemorrhage cannot be entirely excluded. Additionally, active hemorrhage cannot be evaluated for due to lack of IV contrast on this exam. Clinical correlation with hemodynamic status and H&H levels is recommended. 3. Redemonstration of L1 and L2 left transverse process fractures and multiple left lower rib fractures. 4. Redemonstration of nonobstructing calyceal renal calculi measuring up to 11 mm on the right. Jelani Westfall MD Thoracic Spine CT 06/11/17 0000 Signed Impressions: Service Date/Time: Saturday, June 10, 2017 16:35 - CONCLUSION: 1. Two column inferior endplate fracture of the T8 vertebral body extending through the posterior cortex. 2. Distraction of the anterior fracture cleft consistent with at least disruption of the anterior longitudinal ligament. Mechanism of injury is concerning for possible posterior longitudinal ligament injury as well. MRI examination may be performed for further evaluation as clinically warranted. 3. No retropulsed fragments with patent bony central canal. 4. Nondisplaced fracture of the posterior left 11th rib at the costovertebral junction. Jelani Westfall MD Lumbar Spine CT 06/11/17 0000 Signed Impressions: Service Date/Time: Saturday, June 10, 2017 16:35 - CONCLUSION: Prominent anterior lumbar spine osteophytes throughout the lower lumbar spine. No compression deformities identified. L1 transverse process fracture on the left. Retroperitoneal hemorrhage anterior to both psoas muscles is again noted. Artis Villanueva MD Pelvis X-Ray 06/10/175 Signed Impressions: Service Date/Time: Saturday, June 10, 2017 16:25 - CONCLUSION: Unremarkable examination of the pelvis. Artis Villanueva MD Maxillofacial CT 06/10/17 1625 Signed Impressions: Service Date/Time: Saturday, June 10, 2017 16:31 - CONCLUSION: Fluid in the right maxillary sinus without a displaced fracture. Question of a hairline fracture at the base of the left nasal bone. Artis Villanueva MD Head CT 06/10/17 1625 Signed Impressions: Service Date/Time: Saturday, June 10, 2017 16:31 - CONCLUSION: Normal examination. Artis Villanueva MD Cervical Spine CT 06/10/17 1625 Signed Impressions: Service Date/Time: Saturday, June 10, 2017 16:31 - CONCLUSION: Prominent anterior osteophytes. No evidence of an acute fracture, lytic or blastic lesion. Artis Villanueva MD Splenic Arteriogram 06/10/17 0000 Signed Impressions: Service Date/Time: Saturday, June 10, 2017 20:54 - CONCLUSION: Intraparenchymal hemorrhage involving the spleen with successful Gelfoam embolization utilizing selected technique with preserved flow to the spleen. No further hemorrhage seen. Devon Bhatt Jr., MD Physical Exam CONSTITUTIONAL/GENERAL: This is a obese elderly patient, in no apparent distress. SKIN: No jaundice, rashes, or lesions. Ecchymoses on upper extremities. No wounds seen anteriorly. Skin temperature appropriate. Not diaphoretic. EYES: Pupils equal and round and reactive. Extraocular motions intact. No scleral icterus. No injection or drainage. Fundi not examined. CARDIOVASCULAR: Regular rate and rhythm without murmurs, gallops, or rubs. No JVD. Peripheral pulses symmetric. RESPIRATORY/CHEST: Symmetric, unlabored respirations. Clear to auscultation. Breath sounds equal bilaterally. No wheezes, rales, or rhonchi. GASTROINTESTINAL: Abdomen soft, non-tender, distended. . No guarding. Bowel sounds present. GENITOURINARY: Without palpable bladder distension. MUSCULOSKELETAL: Extremities without clubbing, cyanosis, + Marked chronic appearing edema with chronic hyperpigmentation. No joint tenderness or effusion noted. No calf tenderness. No mottling or clubbing. NEUROLOGICAL: Awake and alert. Motor and sensory grossly within normal limits. Follows commands. clear speech. Moves all extremities. PSYCHIATRIC: No obvious anxiety/depression. no apparent hallucinations or other psychotic thought process. Assessment & Plan Remarks Multitrauma including ,multiple rib fractures with pulmonary contusions PNA, MRSA , Kleb Improving breathing staus ABx assiciated diarrhea with leukocytosis cont current tx r/o c.diff Roxi Draper MD Jun 17, 2017 15:40
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
[2017-06-17] MEDS: REMOVE OLD PATCH T-DERMAL SCH (21:07)
[2017-06-18] VITALS (14 sets, daily range): BP systolic 127–165; BP diastolic 64–77; PULSE 64–84; RESP 23–26; TEMP 98–98.8; O2SAT 92–96
[2017-06-18] MEDS: HYDROmorphone HCL PF 1 MG/ML VIAL IV PUSH PRN (01:52)
[2017-06-18] MEDS ORDERED: PHARMACY ORDERED LAB ONE (03:45)
[2017-06-18 03:50] LABS: C. DIFF EPI 027 PRESUMPTIVE NEGATIVE (NEGATIVE)
[2017-06-18] MEDS: CHLORHEXIDINE GLUCONATE 2 % 1 PACK (2 CLOTHS) TOP SCH (04:00)
--- NOTE | 2017-06-18 04:08 | RADRPT ---
EXAM DATE/TIME: 06/18/2017 03:08 [facility] COMPARISON: CHEST SINGLE AP, June 17, 2017, 5:03. INDICATIONS : Shortness of breath. MEDICAL HISTORY : None. SURGICAL HISTORY : None. ENCOUNTER: Subsequent ACUITY: 1 week PAIN SCORE: Non-responsive. LOCATION: Bilateral chest FINDINGS: There is increased density at the left chest especially the left base. There is silhouetting the left heart border and the left hemidiaphragm. Right lung is grossly clear. There are old healed left rib fractures. CONCLUSION: Left mid and lower lung atelectasis or consolidation, some degree of left effusion can also be consid ered. Rojelio Barrow MD on June 18, 2017 at 4:05 Board Certified Radiologist. This report was verified electronically.
[2017-06-18] MEDS: CEFEPIME INJ 2,000 MG in SODIUM CHLORIDE 0.9% INJ 100 ML IV SCH ×3 (05:06→21:11)
[2017-06-18] MEDS: METHOCARBAMOL 500 MG TAB PO SCH ×3 (05:06→21:11)
[2017-06-18] MEDS: ACETAMINOPHEN/HYDROcodone 325 MG/10 MG TAB PO PRN ×2 (05:22→12:08)
[2017-06-18] MEDS: VANCOMYCIN INJ 2,000 MG in SODIUM CHLORID 0.9% 500 ML INJ 500 ML IV SCH (05:46)
[2017-06-18 06:01] LABS: AUTOMATED NEUTROPHIL # 15.6 TH/MM3 (1.8-7.7); BASOPHIL % 0.1 % (0.0-2.0); EOSINOPHIL # 0.2 TH/MM3 (0-0.4); EOSINOPHIL % 1.3 % (0.0-4.0); HEMATOCRIT 32.9 % (39.0-51.0); LYMPH % 5.7 % (9.0-44.0); LYMPHOCYTE # 1.1 TH/MM3 (1.0-4.8); MEAN CELL VOLUME 90.4 FL (80.0-100.0); MEAN CORPUSCULAR HEMOGLOBIN 29.7 PG (27.0-34.0); MEAN CORPUSCULAR HGB CONC 32.8 % (32.0-36.0); MONO % 11.7 % (0.0-8.0); NEUT % 81.2 % (16.0-70.0); PLATELET COUNT 153 TH/MM3 (150-450); RED BLOOD COUNT 3.64 MIL/MM3 (4.50-5.90); WHITE BLOOD COUNT 19.1 TH/MM3 (4.0-11.0)
[2017-06-18 06:04] LABS: HEMO FLAGS AUTO DIFF
[2017-06-18 06:28] LABS: ANION GAP 6 MEQ/L (5-15); AST (GOT) 31 U/L (15-37); BICARBONATE 28.9 MEQ/L (21.0-32.0); BLOOD UREA NITROGEN 21 MG/DL (7-18); CHLORIDE 102 MEQ/L (98-107); GLOMERULAR FILTRATION RATE 159 ML/MIN (>89); POTASSIUM 3.1 MEQ/L (3.5-5.1); SODIUM (NA) 137 MEQ/L (136-145)
[2017-06-18 06:33] LABS: ALKALINE PHOSPHATASE 78 U/L (45-117); ALT (GPT) 21 U/L (12-78); TOTAL BILIRUBIN ADULT 2.5 MG/DL (0.2-1.0)
[2017-06-18 06:46] LABS: BANDS 4 % (0-6); CORRECTED NUCLEATED RBC 1 /100 WBC (0-0); METAMYELOCYTES 1 % (0-1); NEUTROPHIL # MANUAL DIFF 15.3 TH/MM3 (1.8-7.7); PLATELET ESTIMATE SMEAR NORMAL (NORMAL); PLATELET MORPHOLOGY NORMAL (NORMAL); POLYS (SEG NEUTROPHILS) 75 % (16-70); SCAN/DIFF FINAL DIFF MANUAL; WBC DIFF SAMPLE 100
[2017-06-18] MEDS: INSULIN NovoLIN REGULAR SUPPLEMENTAL SCALE SQ SCH ×4 (08:00→21:00)
[2017-06-18] MEDS: FUROSEMIDE 40 MG/4 ML VIAL IV PUSH SCH ×2 (08:32→17:53)
[2017-06-18] MEDS: ENOXAPARIN SODIUM 40 MG/0.4 ML SYRINGE SQ SCH (08:32)
[2017-06-18] MEDS: ALLOPURINOL 300 MG TAB PO SCH (08:32)
[2017-06-18] MEDS: POTASSIUM CHLORIDE 25 MEQ EFFERVESCENT TAB PO SCH ×2 (08:33→19:47)
[2017-06-18] MEDS: MUPIROCIN 2% OINT 1 APPLIC/GM SYR EACH NARE SCH ×2 (08:33→19:47)
[2017-06-18] MEDS: DOCUSATE SODIUM 50 MG/SENNA 8.6 MG TAB PO SCH ×2 (08:33→19:47)
[2017-06-18] MEDS: LACTULOSE SYRUP 20 GM/30 ML CUP PO SCH (08:33)
[2017-06-18] MEDS: DILTIAZEM-CD 240 MG CAP ER PO SCH (08:33)
[2017-06-18] MEDS: POTASSIUM CHLOR 20 MEQ PREMIX 100 ML IV PRN ×2 (08:33→13:08)
[2017-06-18] MEDS: BACITRACIN TOP OINT 15 GM TUBE TOP SCH ×2 (08:34→21:00)
[2017-06-18] MEDS: LIDOCAINE HCL 5% PATCH T-DERMAL SCH (08:34)
[2017-06-18] MEDS: RESP: ALBUTEROL 2.5 MG/IPRATROPIUM 0.5 MG NEB (PRN) NEB (09:16)
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
--- NOTE | 2017-06-18 17:40 | HHI.IDPN ---
Subjective Subjective Remarks no fever cont to have diarrhea C.diff negative WBC start to go down Antibiotics vanco cefepime Allergies: Coded Allergies: No Known Allergies (Unverified , 06/14/17) Objective . Vital Signs Date Time Temp Pulse Resp B/P (MAP) Pulse Ox O2 Delivery O2 Flow Rate FiO2 06/18/17 16:00 64 06/18/17 16:00 98.7 64 23 127/64 (85) 94 06/18/17 14:00 74 06/18/17 12:00 77 06/18/17 12:00 98.2 80 23 161/71 (101) 94 06/18/17 10:00 82 06/18/17 09:16 94 High Flow Nasal Cannula 20.00 40 06/18/17 08:00 82 06/18/17 08:00 98.4 77 26 165/77 (106) 94 06/18/17 07:00 95 Nasal Cannula 20.00 40 06/18/17 06:00 80 06/18/17 04:00 98.8 80 24 147/77 (100) 92 06/18/17 04:00 80 06/18/17 02:22 26 06/18/17 02:00 84 06/18/17 00:31 21 06/18/17 00:00 98.0 76 25 143/68 (93) 93 06/18/17 00:00 76 06/17/17 22:00 76 06/17/17 20:00 76 06/17/17 20:00 97.7 76 25 143/73 (96) 93 06/17/17 19:57 93 High Flow Nasal Cannula 20.00 40 06/17/17 19:00 100 Nasal Cannula 20.00 40 06/17/17 18:00 80 06/18/17 06/18/17 06/19/17 15:00 23:00 07:00 Intake Total 520 ml Balance 520 ml IV Total 520 ml . Laboratory Tests Test 06/17/17 04:59 06/18/17 05:18 White Blood Count 22.0 TH/MM3 19.1 TH/MM3 Red Blood Count 3.44 MIL/MM3 3.64 MIL/MM3 Hemoglobin 10.0 GM/DL 10.8 GM/DL Hematocrit 30.7 % 32.9 % Mean Corpuscular Volume 89.3 FL 90.4 FL Mean Corpuscular Hemoglobin 29.2 PG 29.7 PG Mean Corpuscular Hemoglobin Concent 32.7 % 32.8 % Red Cell Distribution Width 16.5 % 17.0 % Platelet Count 160 TH/MM3 153 TH/MM3 Mean Platelet Volume 9.6 FL 9.2 FL Neutrophils (%) (Auto) 83.4 % 81.2 % Lymphocytes (%) (Auto) 4.2 % 5.7 % Monocytes (%) (Auto) 12.1 % 11.7 % Eosinophils (%) (Auto) 0.2 % 1.3 % Basophils (%) (Auto) 0.1 % 0.1 % Neutrophils # (Auto) 18.3 TH/MM3 15.6 TH/MM3 Lymphocytes # (Auto) 0.9 TH/MM3 1.1 TH/MM3 Monocytes # (Auto) 2.7 TH/MM3 2.2 TH/MM3 Eosinophils # (Auto) 0.1 TH/MM3 0.2 TH/MM3 Basophils # (Auto) 0.0 TH/MM3 0.0 TH/MM3 CBC Comment AUTO DIFF AUTO DIFF Differential Comment AUTO DIFF CONFIRMED FINAL DIFF MANUAL Platelet Estimate NORMAL NORMAL Platelet Morphology Comment NORMAL NORMAL Polychromasia 2.4 % 2.0 % Differential Total Cells Counted 100 Neutrophils % (Manual) 75 % Band Neutrophils % 4 % Lymphocytes % 5 % Monocytes % 15 % Neutrophils # (Manual) 15.3 TH/MM3 Metamyelocytes 1 % Nucleated Red Blood Cells 1 /100 WBC Laboratory Tests Test 06/17/17 04:59 06/17/17 17:50 06/18/17 05:18 Blood Urea Nitrogen 26 MG/DL 21 MG/DL Creatinine 0.67 MG/DL 0.52 MG/DL Random Glucose 164 MG/DL 155 MG/DL Total Protein 6.0 GM/DL 6.2 GM/DL Albumin 2.2 GM/DL 2.2 GM/DL Calcium Level 7.8 MG/DL 7.9 MG/DL Phosphorus Level 1.0 MG/DL 1.3 MG/DL Magnesium Level 2.1 MG/DL Alkaline Phosphatase 85 U/L 78 U/L Aspartate Amino Transf (AST/SGOT) 27 U/L 31 U/L Alanine Aminotransferase (ALT/SGPT) 21 U/L 21 U/L Total Bilirubin 3.0 MG/DL 2.5 MG/DL Direct Bilirubin 1.6 MG/DL Sodium Level 138 MEQ/L 137 MEQ/L Potassium Level 3.3 MEQ/L 3.7 MEQ/L 3.1 MEQ/L Chloride Level 101 MEQ/L 102 MEQ/L Carbon Dioxide Level 27.9 MEQ/L 28.9 MEQ/L Anion Gap 9 MEQ/L 6 MEQ/L Estimat Glomerular Filtration Rate 119 ML/MIN 159 ML/MIN Indirect Bilirubin 1.4 MG/DL Imaging Last Impressions Chest X-Ray 06/18/17 0600 Signed Impressions: Service Date/Time: Sunday, June 18, 2017 03:08 - CONCLUSION: Left mid and lower lung atelectasis or consolidation, some degree of left effusion can also be considered. Rojelio Barrow MD Thoracic Spine X-Ray 06/16/17 0000 Signed Impressions: Service Date/Time: Friday, June 16, 2017 17:12 - CONCLUSION: 1. Fracture through the upper half of the T8 vertebral body. 2. Multilevel flowing osteophytes of the dorsal spine characteristic of DISH. 3. Airspace consolidation, most prominent in the medial right base. Baldo Meenses MD Chest CT 06/13/17 0000 Signed Impressions: Service Date/Time: Tuesday, June 13, 2017 13:34 - CONCLUSION: Extensive areas of consolidation throughout the lower lobes left greater than right. Moderate-sized left pleural effusion. Multiple left-sided rib fractures. Or consolidated lung no pleural effusions. No mediastinal hematomas identified. There is residual hemorrhage surrounding the spleen. Artis Villanueva MD Abdomen/Pelvis CT 06/13/17 0000 Signed Impressions: Service Date/Time: Tuesday, June 13, 2017 13:36 - CONCLUSION: 1. Heterogeneous splenic parenchyma containing a small focus of air with perisplenic hematoma consistent with recent Gelfoam embolization of splenic parenchymal hemorrhage. 2. Small amount of hemoperitoneum, mildly increased since original CT examination. This likely reflects hemorrhage prior to embolization of the spleen. However, intercurrent hemorrhage cannot be entirely excluded. Additionally, active hemorrhage cannot be evaluated for due to lack of IV contrast on this exam. Clinical correlation with hemodynamic status and H&H levels is recommended. 3. Redemonstration of L1 and L2 left transverse process fractures and multiple left lower rib fractures. 4. Redemonstration of nonobstructing calyceal renal calculi measuring up to 11 mm on the right. Jelani Westfall MD Thoracic Spine CT 06/11/17 0000 Signed Impressions: Service Date/Time: Saturday, June 10, 2017 16:35 - CONCLUSION: 1. Two column inferior endplate fracture of the T8 vertebral body extending through the posterior cortex. 2. Distraction of the anterior fracture cleft consistent with at least disruption of the anterior longitudinal ligament. Mechanism of injury is concerning for possible posterior longitudinal ligament injury as well. MRI examination may be performed for further evaluation as clinically warranted. 3. No retropulsed fragments with patent bony central canal. 4. Nondisplaced fracture of the posterior left 11th rib at the costovertebral junction. Jelani Westfall MD Lumbar Spine CT 06/11/17 0000 Signed Impressions: Service Date/Time: Saturday, June 10, 2017 16:35 - CONCLUSION: Prominent anterior lumbar spine osteophytes throughout the lower lumbar spine. No compression deformities identified. L1 transverse process fracture on the left. Retroperitoneal hemorrhage anterior to both psoas muscles is again noted. Artis Villanueva MD Pelvis X-Ray 06/10/17 1625 Signed Impressions: Service Date/Time: Saturday, June 10, 2017 16:25 - CONCLUSION: Unremarkable examination of the pelvis. Artis Villanueva MD Maxillofacial CT 06/10/17 1625 Signed Impressions: Service Date/Time: Saturday, June 10, 2017 16:31 - CONCLUSION: Fluid in the right maxillary sinus without a displaced fracture. Question of a hairline fracture at the base of the left nasal bone. Artis Villanueva MD Head CT 06/10/17 1625 Signed Impressions: Service Date/Time: Saturday, June 10, 2017 16:31 - CONCLUSION: Normal examination. Artis Villanueva MD Cervical Spine CT 06/10/17 1625 Signed Impressions: Service Date/Time: Saturday, June 10, 2017 16:31 - CONCLUSION: Prominent anterior osteophytes. No evidence of an acute fracture, lytic or blastic lesion. Artis Villanueva MD Splenic Arteriogram 06/10/17 0000 Signed Impressions: Service Date/Time: Saturday, June 10, 2017 20:54 - CONCLUSION: Intraparenchymal hemorrhage involving the spleen with successful Gelfoam embolization utilizing selected technique with preserved flow to the spleen. No further hemorrhage seen. Devon Bhatt Jr., MD Physical Exam CONSTITUTIONAL/GENERAL: This is a obese elderly patient, in no apparent distress. SKIN: No jaundice, rashes, or lesions. Ecchymoses on upper extremities. No wounds seen anteriorly. Skin temperature appropriate. Not diaphoretic. EYES: Pupils equal and round and reactive. Extraocular motions intact. No scleral icterus. No injection or drainage. Fundi not examined. CARDIOVASCULAR: Regular rate and rhythm without murmurs, gallops, or rubs. No JVD. Peripheral pulses symmetric. RESPIRATORY/CHEST: Symmetric, unlabored respirations. Clear to auscultation. Breath sounds equal bilaterally. No wheezes, rales, or rhonchi. GASTROINTESTINAL: Abdomen soft, non-tender, quite distended. . No guarding. Bowel sounds present. GENITOURINARY: Without palpable bladder distension. MUSCULOSKELETAL: Extremities without clubbing, cyanosis, + Marked chronic appearing edema with chronic hyperpigmentation. Edema less prominent No joint tenderness or effusion noted. No calf tenderness. No mottling or clubbing. NEUROLOGICAL: Awake and alert. Motor and sensory grossly within normal limits. Follows commands. clear speech. Moves all extremities. PSYCHIATRIC: No obvious anxiety/depression. no apparent hallucinations or other psychotic thought process. Assessment & Plan Remarks Multitrauma including ,multiple rib fractures with pulmonary contusions PNA, MRSA , Kleb Improving breathing staus ABx assiciated diarrhea with leukocytosis - C.diff negative Leukcytosis - slightly improved cont kayceo, cefepime Roxi Draper MD Jun 18, 2017 17:40
[2017-06-18] MEDS: REMOVE OLD PATCH T-DERMAL SCH (21:00)
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
[2017-06-19] VITALS (10 sets, daily range): BP systolic 146–175; BP diastolic 72–90; PULSE 72–82; RESP 18–30; TEMP 96.6–98.2; O2SAT 93–98
[2017-06-19] MEDS: CHLORHEXIDINE GLUCONATE 2 % 1 PACK (2 CLOTHS) TOP SCH ×2 (01:59→22:25)
[2017-06-19 04:05] LABS: AUTOMATED NEUTROPHIL # 14.6 TH/MM3 (1.8-7.7); BASOPHIL # 0.1 TH/MM3 (0-0.2); BASOPHIL % 0.4 % (0.0-2.0); EOSINOPHIL # 0.2 TH/MM3 (0-0.4); EOSINOPHIL % 1.2 % (0.0-4.0); HEMATOCRIT 32.9 % (39.0-51.0); HEMO FLAGS DIFF FINAL; LYMPH % 5.9 % (9.0-44.0); LYMPHOCYTE # 1.1 TH/MM3 (1.0-4.8); MEAN CELL VOLUME 90.3 FL (80.0-100.0); MEAN CORPUSCULAR HGB CONC 32.2 % (32.0-36.0); MONO % 10.9 % (0.0-8.0); NEUT % 81.6 % (16.0-70.0); PLATELET COUNT 136 TH/MM3 (150-450); RED BLOOD COUNT 3.65 MIL/MM3 (4.50-5.90); RED CELL DISTRIBUTION WIDTH 17.2 % (11.6-17.2); WHITE BLOOD COUNT 17.9 TH/MM3 (4.0-11.0)
[2017-06-19 04:38] LABS: ALT (GPT) 18 U/L (12-78); ANION GAP 10 MEQ/L (5-15); AST (GOT) 23 U/L (15-37); BICARBONATE 26.8 MEQ/L (21.0-32.0); BLOOD UREA NITROGEN 19 MG/DL (7-18); CHLORIDE 102 MEQ/L (98-107); GLOMERULAR FILTRATION RATE 203 ML/MIN (>89); POTASSIUM 3.3 MEQ/L (3.5-5.1); SODIUM (NA) 139 MEQ/L (136-145)
[2017-06-19 04:40] LABS: ALKALINE PHOSPHATASE 77 U/L (45-117); TOTAL BILIRUBIN ADULT 2.1 MG/DL (0.2-1.0)
[2017-06-19] MEDS: CEFEPIME INJ 2,000 MG in SODIUM CHLORIDE 0.9% INJ 100 ML IV SCH ×3 (05:05→22:25)
[2017-06-19] MEDS: METHOCARBAMOL 500 MG TAB PO SCH ×3 (05:05→22:24)
--- NOTE | 2017-06-19 06:13 | RADRPT ---
EXAM DATE/TIME: 06/19/2017 05:24 [facility] COMPARISON: CHEST SINGLE AP, June 18, 2017, 3:08. INDICATIONS : Respiratory distress. MEDICAL HISTORY : Hypertension. Diabetes mellitus type 2. SURGICAL HISTORY : None. ENCOUNTER: Subsequent ACUITY: 1 week PAIN SCORE: Non-responsive. LOCATION: Bilateral chest FINDINGS: The cardiac silhouette is enlarged. There is increased density at the left base with silhouetting lef t hemidiaphragm. The right lung is grossly clear. There are old left rib fractures. CONCLUSION: 1. Cardiomegaly. 2. Increased density at the left base likely related to atelectasis or consolidation. Some degree of effusion cannot be excluded. Rojelio Barrow MD on June 19, 2017 at 6:10 Board Certified Radiologist. This report was verified electronically.
[2017-06-19] MEDS: INSULIN NovoLIN REGULAR SUPPLEMENTAL SCALE SQ SCH ×4 (07:14→22:22)
[2017-06-19] MEDS: ALLOPURINOL 300 MG TAB PO SCH (08:06)
[2017-06-19] MEDS: DILTIAZEM-CD 240 MG CAP ER PO SCH (08:06)
[2017-06-19] MEDS: ENOXAPARIN SODIUM 40 MG/0.4 ML SYRINGE SQ SCH (08:06)
[2017-06-19] MEDS: DOCUSATE SODIUM 50 MG/SENNA 8.6 MG TAB PO SCH ×2 (08:06→21:00)
[2017-06-19] MEDS: FUROSEMIDE 40 MG/4 ML VIAL IV PUSH SCH ×2 (08:06→17:04)
[2017-06-19] MEDS: MUPIROCIN 2% OINT 1 APPLIC/GM SYR EACH NARE SCH ×2 (08:06→21:00)
[2017-06-19] MEDS: LACTULOSE SYRUP 20 GM/30 ML CUP PO SCH (08:07)
[2017-06-19] MEDS: LIDOCAINE HCL 5% PATCH T-DERMAL SCH (08:07)
[2017-06-19] MEDS: POTASSIUM CHLORIDE 25 MEQ EFFERVESCENT TAB PO SCH ×2 (08:07→22:21)
[2017-06-19] MEDS: BACITRACIN TOP OINT 15 GM TUBE TOP SCH ×2 (08:08→21:00)
[2017-06-19] MEDS ORDERED: POTASSIUM PHOSPHATE INJ 30 MMOL in SODIUM CHLOR 0.9% 250 ML INJ 250 ML IV ONE (08:15)
[2017-06-19] MEDS ORDERED: POTASSIUM CHLORIDE 10 MEQ CONTROLLED RELEASE TAB PO ONE (08:15)
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
[2017-06-19] MEDS: ACETAMINOPHEN/HYDROcodone 325 MG/10 MG TAB PO PRN ×4 (12:58→23:56)
[2017-06-19] MEDS: VANCOMYCIN INJ 1,500 MG in SODIUM CHLORID 0.9% 500 ML INJ 500 ML IV SCH ×4 (12:59→23:56)
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
[2017-06-19] MEDS: REMOVE OLD PATCH T-DERMAL SCH (21:00)
[2017-06-19] MEDS: ZOLPIDEM TARTRATE 5 MG TAB PO PRN (22:24)
[2017-06-20] VITALS (9 sets, daily range): BP systolic 144–172; BP diastolic 76–88; PULSE 74–100; RESP 18–21; TEMP 96.4–97.6; O2SAT 92–98
[2017-06-20] MEDS: RESP: ALBUTEROL 2.5 MG/IPRATROPIUM 0.5 MG NEB (PRN) NEB ×2 (00:03→11:55)
[2017-06-20 04:10] LABS: AUTOMATED NEUTROPHIL # 15.1 TH/MM3 (1.8-7.7); BASOPHIL # 0.1 TH/MM3 (0-0.2); BASOPHIL % 0.7 % (0.0-2.0); EOSINOPHIL # 0.2 TH/MM3 (0-0.4); EOSINOPHIL % 0.9 % (0.0-4.0); HEMATOCRIT 34.2 % (39.0-51.0); LYMPH % 6.3 % (9.0-44.0); LYMPHOCYTE # 1.2 TH/MM3 (1.0-4.8); MEAN CELL VOLUME 91.2 FL (80.0-100.0); MEAN CORPUSCULAR HEMOGLOBIN 29.5 PG (27.0-34.0); MEAN CORPUSCULAR HGB CONC 32.4 % (32.0-36.0); MONO % 12.6 % (0.0-8.0); NEUT % 79.5 % (16.0-70.0); PLATELET COUNT 134 TH/MM3 (150-450); RED BLOOD COUNT 3.74 MIL/MM3 (4.50-5.90); RED CELL DISTRIBUTION WIDTH 17.7 % (11.6-17.2); WHITE BLOOD COUNT 18.9 TH/MM3 (4.0-11.0)
[2017-06-20 04:12] LABS: HEMO FLAGS AUTO DIFF
[2017-06-20 04:32] LABS: ANION GAP 10 MEQ/L (5-15); AST (GOT) 28 U/L (15-37); BICARBONATE 27.1 MEQ/L (21.0-32.0); BLOOD UREA NITROGEN 18 MG/DL (7-18); CHLORIDE 101 MEQ/L (98-107); GLOMERULAR FILTRATION RATE 179 ML/MIN (>89); POTASSIUM 3.3 MEQ/L (3.5-5.1); SODIUM (NA) 138 MEQ/L (136-145)
[2017-06-20 04:33] LABS: ALT (GPT) 17 U/L (12-78)
[2017-06-20 04:35] LABS: ALKALINE PHOSPHATASE 89 U/L (45-117); TOTAL BILIRUBIN ADULT 2.1 MG/DL (0.2-1.0)
[2017-06-20 04:48] LABS: BANDS 5 % (0-6); EOSINOPHILS 1 % (0-4); NEUTROPHIL # MANUAL DIFF 17.4 TH/MM3 (1.8-7.7); POLYS (SEG NEUTROPHILS) 87 % (16-70); SCAN/DIFF FINAL DIFF MANUAL; WBC DIFF SAMPLE 100
[2017-06-20] MEDS: CEFEPIME INJ 2,000 MG in SODIUM CHLORIDE 0.9% INJ 100 ML IV SCH ×3 (05:44→21:57)
[2017-06-20] MEDS: METHOCARBAMOL 500 MG TAB PO SCH ×3 (05:44→21:50)
[2017-06-20] MEDS: ACETAMINOPHEN/HYDROcodone 325 MG/10 MG TAB PO PRN ×5 (05:45→21:52)
--- NOTE | 2017-06-20 07:29 | RADRPT ---
EXAM DATE/TIME: 06/20/2017 05:57 [facility] COMPARISON: CT THORAX W/O CONTRAST, June 13, 2017, 13:34. CHEST SINGLE AP, June 19, 2017, 5:24. INDICATIONS : Chest and back pain, short of breath, follow up trauma MEDICAL HISTORY : Diabetes mellitus type II. Hypertension Rib and T8 fractures SURGICAL HISTORY : None. ENCOUNTER: Subsequent ACUITY: 1 week PAIN SCORE: 8/10 LOCATION: Bilateral chest FINDINGS: Single view the chest again demonstrates both cardiomegaly as well as left basilar atelectasis and pl eural effusion. There is hazy increased opacity involving the bilateral lung bases as well as the lef t upper lobe consistent with bilateral pleural effusions left greater than right. No evidence of pneu mothorax. Osseous structures demonstrate degenerative change but are otherwise unremarkable. CONCLUSION: Stable exam. Left basilar airspace consolidation and bilateral pleural effusions, left greater than r ight. Elsie Mancera MD on June 20, 2017 at 7:25 Board Certified Radiologist. This report was verified electronically.
[2017-06-20] MEDS ORDERED: POTASSIUM CHLORIDE 20 MEQ CONTROLLED RELEASE TAB PO ONE (07:30)
[2017-06-20] MEDS ORDERED: METH500T3 PO (07:36)
[2017-06-20] MEDS ORDERED: Lactulose Liq PO (07:36)
[2017-06-20] MEDS ORDERED: ALLO300 PO (07:36)
[2017-06-20] MEDS ORDERED: HYDR-3516 PO (07:36)
[2017-06-20] MEDS ORDERED: DILT240C44 PO (07:36)
[2017-06-20] MEDS ORDERED: PERI PO (07:36)
[2017-06-20] MEDS ORDERED: ENOX40P SQ (07:36)
[2017-06-20] MEDS ORDERED: AMBI5TAB PO (07:36)
[2017-06-20] MEDS ORDERED: KLYTECL PO (07:36)
[2017-06-20] MEDS ORDERED: NOVORP2 SQ (07:36)
[2017-06-20] MEDS ORDERED: ENALAPRILAT 1.25 MG/ML VIAL IV PUSH PRN (07:45)
[2017-06-20] MEDS: INSULIN NovoLIN REGULAR SUPPLEMENTAL SCALE SQ SCH ×3 (08:00→22:04)
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
[2017-06-20] MEDS: BACITRACIN TOP OINT 15 GM TUBE TOP SCH ×2 (09:00→21:00)
[2017-06-20] MEDS: LACTULOSE SYRUP 20 GM/30 ML CUP PO SCH (09:00)
[2017-06-20] MEDS: MUPIROCIN 2% OINT 1 APPLIC/GM SYR EACH NARE SCH ×2 (09:00→21:00)
[2017-06-20] MEDS: LIDOCAINE HCL 5% PATCH T-DERMAL SCH (09:20)
[2017-06-20] MEDS: DOCUSATE SODIUM 50 MG/SENNA 8.6 MG TAB PO SCH ×2 (09:21→21:00)
[2017-06-20] MEDS: ALLOPURINOL 300 MG TAB PO SCH (09:21)
[2017-06-20] MEDS: FUROSEMIDE 40 MG/4 ML VIAL IV PUSH SCH ×2 (09:21→17:35)
[2017-06-20] MEDS: DILTIAZEM-CD 240 MG CAP ER PO SCH (09:22)
[2017-06-20] MEDS: POTASSIUM CHLORIDE 25 MEQ EFFERVESCENT TAB PO SCH ×2 (09:22→21:49)
[2017-06-20] MEDS: ENOXAPARIN SODIUM 40 MG/0.4 ML SYRINGE SQ SCH (09:24)
[2017-06-20] MEDS ORDERED: PHARMACY ORDERED LAB ONE (11:45)
[2017-06-20] MEDS: VANCOMYCIN INJ 1,500 MG in SODIUM CHLORID 0.9% 500 ML INJ 500 ML IV SCH (13:46)
--- NOTE | 2017-06-20 14:14 | HHI.IDPN ---
Subjective Subjective Remarks no fever appears tachypneic WBC is slowly going up Antibiotics vanco cefepime Allergies: Coded Allergies: No Known Allergies (Unverified , 06/14/17) Objective . Vital Signs Date Time Temp Pulse Resp B/P (MAP) Pulse Ox O2 Delivery O2 Flow Rate FiO2 06/20/17 12:00 96.7 82 20 169/76 (107) 97 06/20/17 10:47 98 Nasal Cannula 4.00 06/20/17 08:00 96.8 81 20 160/83 (108) 96 06/20/17 05:18 96.9 82 18 172/88 (116) 97 06/20/17 02:11 95 4.00 06/20/17 02:01 162/83 (109) 06/20/17 00:17 97.2 100 18 95 06/20/17 00:07 95 Nasal Cannula 6.00 06/19/17 21:10 96.6 82 18 173/81 (111) 95 06/19/17 17:22 95 3.00 06/19/17 17:22 95 Nasal Cannula 3.00 06/19/17 16:00 97.0 80 19 175/90 (118) 93 . Laboratory Tests Test 06/19/17 03:43 06/20/17 03:43 White Blood Count 17.9 TH/MM3 18.9 TH/MM3 Red Blood Count 3.65 MIL/MM3 3.74 MIL/MM3 Hemoglobin 10.6 GM/DL 11.1 GM/DL Hematocrit 32.9 % 34.2 % Mean Corpuscular Volume 90.3 FL 91.2 FL Mean Corpuscular Hemoglobin 29.0 PG 29.5 PG Mean Corpuscular Hemoglobin Concent 32.2 % 32.4 % Red Cell Distribution Width 17.2 % 17.7 % Platelet Count 136 TH/MM3 134 TH/MM3 Mean Platelet Volume 9.1 FL 9.1 FL Neutrophils (%) (Auto) 81.6 % 79.5 % Lymphocytes (%) (Auto) 5.9 % 6.3 % Monocytes (%) (Auto) 10.9 % 12.6 % Eosinophils (%) (Auto) 1.2 % 0.9 % Basophils (%) (Auto) 0.4 % 0.7 % Neutrophils # (Auto) 14.6 TH/MM3 15.1 TH/MM3 Lymphocytes # (Auto) 1.1 TH/MM3 1.2 TH/MM3 Monocytes # (Auto) 1.9 TH/MM3 2.4 TH/MM3 Eosinophils # (Auto) 0.2 TH/MM3 0.2 TH/MM3 Basophils # (Auto) 0.1 TH/MM3 0.1 TH/MM3 CBC Comment DIFF FINAL AUTO DIFF Differential Comment FINAL DIFF MANUAL Differential Total Cells Counted 100 Neutrophils % (Manual) 87 % Band Neutrophils % 5 % Lymphocytes % 2 % Monocytes % 5 % Eosinophils % 1 % Neutrophils # (Manual) 17.4 TH/MM3 Laboratory Tests Test 06/19/17 03:43 06/20/17 03:43 Blood Urea Nitrogen 19 MG/DL 18 MG/DL Creatinine 0.42 MG/DL 0.47 MG/DL Random Glucose 136 MG/DL 144 MG/DL Total Protein 5.7 GM/DL 6.1 GM/DL Albumin 2.1 GM/DL 2.2 GM/DL Calcium Level 7.8 MG/DL 7.6 MG/DL Phosphorus Level 1.3 MG/DL Magnesium Level 2.0 MG/DL Alkaline Phosphatase 77 U/L 89 U/L Aspartate Amino Transf (AST/SGOT) 23 U/L 28 U/L Alanine Aminotransferase (ALT/SGPT) 18 U/L 17 U/L Total Bilirubin 2.1 MG/DL 2.1 MG/DL Sodium Level 139 MEQ/L 138 MEQ/L Potassium Level 3.3 MEQ/L 3.3 MEQ/L Chloride Level 102 MEQ/L 101 MEQ/L Carbon Dioxide Level 26.8 MEQ/L 27.1 MEQ/L Anion Gap 10 MEQ/L 10 MEQ/L Estimat Glomerular Filtration Rate 203 ML/MIN 179 ML/MIN Imaging Last Impressions Chest X-Ray 06/20/17 0600 Signed Impressions: Service Date/Time: Tuesday, June 20, 2017 05:57 - CONCLUSION: Stable exam. Left basilar airspace consolidation and bilateral pleural effusions, left greater than right. Elsie Mancera MD Thoracic Spine X-Ray 06/16/17 0000 Signed Impressions: Service Date/Time: Friday, June 16, 2017 17:12 - CONCLUSION: 1. Fracture through the upper half of the T8 vertebral body. 2. Multilevel flowing osteophytes of the dorsal spine characteristic of DISH. 3. Airspace consolidation, most prominent in the medial right base. Baldo Meneses MD Chest CT 06/13/17 0000 Signed Impressions: Service Date/Time: Tuesday, June 13, 2017 13:34 - CONCLUSION: Extensive areas of consolidation throughout the lower lobes left greater than right. Moderate-sized left pleural effusion. Multiple left-sided rib fractures. Or consolidated lung no pleural effusions. No mediastinal hematomas identified. There is residual hemorrhage surrounding the spleen. Artis Villanueva MD Abdomen/Pelvis CT 06/13/17 0000 Signed Impressions: Service Date/Time: Tuesday, June 13, 2017 13:36 - CONCLUSION: 1. Heterogeneous splenic parenchyma containing a small focus of air with perisplenic hematoma consistent with recent Gelfoam embolization of splenic parenchymal hemorrhage. 2. Small amount of hemoperitoneum, mildly increased since original CT examination. This likely reflects hemorrhage prior to embolization of the spleen. However, intercurrent hemorrhage cannot be entirely excluded. Additionally, active hemorrhage cannot be evaluated for due to lack of IV contrast on this exam. Clinical correlation with hemodynamic status and H&H levels is recommended. 3. Redemonstration of L1 and L2 left transverse process fractures and multiple left lower rib fractures. 4. Redemonstration of nonobstructing calyceal renal calculi measuring up to 11 mm on the right. Jelani Westfall MD Thoracic Spine CT 06/11/17 0000 Signed Impressions: Service Date/Time: Saturday, June 10, 2017 16:35 - CONCLUSION: 1. Two column inferior endplate fracture of the T8 vertebral body extending through the posterior cortex. 2. Distraction of the anterior fracture cleft consistent with at least disruption of the anterior longitudinal ligament. Mechanism of injury is concerning for possible posterior longitudinal ligament injury as well. MRI examination may be performed for further evaluation as clinically warranted. 3. No retropulsed fragments with patent bony central canal. 4. Nondisplaced fracture of the posterior left 11th rib at the costovertebral junction. Jelani Westfall MD Lumbar Spine CT 06/11/17 0000 Signed Impressions: Service Date/Time: Saturday, June 10, 2017 16:35 - CONCLUSION: Prominent anterior lumbar spine osteophytes throughout the lower lumbar spine. No compression deformities identified. L1 transverse process fracture on the left. Retroperitoneal hemorrhage anterior to both psoas muscles is again noted. Artis Villanueva MD Pelvis X-Ray 06/10/17 1625 Signed Impressions: Service Date/Time: Saturday, June 10, 2017 16:25 - CONCLUSION: Unremarkable examination of the pelvis. Artis Villanueva MD Maxillofacial CT 06/10/17 1625 Signed Impressions: Service Date/Time: Saturday, June 10, 2017 16:31 - CONCLUSION: Fluid in the right maxillary sinus without a displaced fracture. Question of a hairline fracture at the base of the left nasal bone. Artis Villanueva MD Head CT 06/10/17 1625 Signed Impressions: Service Date/Time: Saturday, June 10, 2017 16:31 - CONCLUSION: Normal examination. Artis Villanueva MD Cervical Spine CT 06/10/17 162 Signed Impressions: Service Date/Time: Saturday, June 10, 2017 16:31 - CONCLUSION: Prominent anterior osteophytes. No evidence of an acute fracture, lytic or blastic lesion. Artis Villanueva MD Splenic Arteriogram 06/10/17 0000 Signed Impressions: Service Date/Time: Saturday, June 10, 2017 20:54 - CONCLUSION: Intraparenchymal hemorrhage involving the spleen with successful Gelfoam embolization utilizing selected technique with preserved flow to the spleen. No further hemorrhage seen. Devon Bhatt Jr., MD Physical Exam CONSTITUTIONAL/GENERAL: This is a obese elderly patient, in no apparent distress. SKIN: No jaundice, rashes, or lesions. Ecchymoses on upper extremities. No wounds seen anteriorly. Skin temperature appropriate. Not diaphoretic. EYES: Pupils equal and round and reactive. Extraocular motions intact. No scleral icterus. No injection or drainage. Fundi not examined. CARDIOVASCULAR: Regular rate and rhythm without murmurs, gallops, or rubs. No JVD. Peripheral pulses symmetric. RESPIRATORY/CHEST: Symmetric, unlabored respirations. Appears tachypneic Clear to auscultation. Breath sounds decreased bilaterally. No wheezes, rales, or rhonchi. GASTROINTESTINAL: Abdomen soft, non-tender, quite distended. . No guarding. Bowel sounds present. GENITOURINARY: Without palpable bladder distension. MUSCULOSKELETAL: Extremities without clubbing, cyanosis, + Marked chronic appearing edema with chronic hyperpigmentation. Edema less prominent No joint tenderness or effusion noted. No calf tenderness. No mottling or clubbing. NEUROLOGICAL: Awake and alert. Motor and sensory grossly within normal limits. Follows commands. clear speech. Moves all extremities. PSYCHIATRIC: No obvious anxiety/depression. no apparent hallucinations or other psychotic thought process. Assessment & Plan Remarks Multitrauma including ,multiple rib fractures with pulmonary contusions PNA, MRSA , Kleb Improving resp status ABx assiciated diarrhea - C.diff negative Persistent leukocytosis cont vanco, cefepime monitor WBC CT chest w/o hold dc manjinder Jackson and Roxi Bryson MD Jun 20, 2017 14:14
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
[2017-06-20] MEDS: REMOVE OLD PATCH T-DERMAL SCH (21:00)
[2017-06-20] MEDS: ZOLPIDEM TARTRATE 5 MG TAB PO PRN (23:07)
[2017-06-21] VITALS: BP_SYST 139; BP_DIAS 78; BP_DIAS 8; PULSE 83; RESP 20; TEMP 96.4; O2SAT 96
[2017-06-21] MEDS: ACETAMINOPHEN/HYDROcodone 325 MG/10 MG TAB PO PRN ×5 (02:14→22:50)
[2017-06-21] MEDS: VANCOMYCIN INJ 1,500 MG in SODIUM CHLORID 0.9% 500 ML INJ 500 ML IV SCH ×2 (02:20→12:11)
[2017-06-21 04:28] LABS: AUTOMATED NEUTROPHIL # 17.1 TH/MM3 (1.8-7.7); BASOPHIL # 0.2 TH/MM3 (0-0.2); BASOPHIL % 0.8 % (0.0-2.0); EOSINOPHIL # 0.2 TH/MM3 (0-0.4); EOSINOPHIL % 1.1 % (0.0-4.0); HEMATOCRIT 35.4 % (39.0-51.0); LYMPH % 4.6 % (9.0-44.0); MEAN CELL VOLUME 92.2 FL (80.0-100.0); MEAN CORPUSCULAR HGB CONC 32.6 % (32.0-36.0); MONO % 10.8 % (0.0-8.0); NEUT % 82.7 % (16.0-70.0); PLATELET COUNT 122 TH/MM3 (150-450); RED BLOOD COUNT 3.84 MIL/MM3 (4.50-5.90); WHITE BLOOD COUNT 20.7 TH/MM3 (4.0-11.0)
[2017-06-21 04:31] LABS: HEMO FLAGS AUTO DIFF
[2017-06-21 04:40] LABS: ALT (GPT) 18 U/L (12-78); ANION GAP 7 MEQ/L (5-15); AST (GOT) 26 U/L (15-37); BICARBONATE 30.3 MEQ/L (21.0-32.0); BLOOD UREA NITROGEN 16 MG/DL (7-18); CHLORIDE 101 MEQ/L (98-107); GLOMERULAR FILTRATION RATE 170 ML/MIN (>89); POTASSIUM 3.3 MEQ/L (3.5-5.1); SODIUM (NA) 138 MEQ/L (136-145)
[2017-06-21 04:41] LABS: ALKALINE PHOSPHATASE 91 U/L (45-117); TOTAL BILIRUBIN ADULT 2.4 MG/DL (0.2-1.0)
[2017-06-21] MEDS: METHOCARBAMOL 500 MG TAB PO SCH ×3 (06:04→22:51)
[2017-06-21] MEDS: CEFEPIME INJ 2,000 MG in SODIUM CHLORIDE 0.9% INJ 100 ML IV SCH ×3 (06:10→22:50)
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
[2017-06-21 06:35] LABS: SCAN/DIFF AUTO DIFF CONFIRMED
[2017-06-21 08:00] VITALS: BP 168/83; PULSE 88; RESP 21; TEMP 96.2; O2SAT 93
[2017-06-21] MEDS: INSULIN NovoLIN REGULAR SUPPLEMENTAL SCALE SQ SCH ×4 (08:00→20:06)
[2017-06-21] MEDS: DILTIAZEM-CD 240 MG CAP ER PO SCH (08:12)
--- NOTE | 2017-06-21 08:54 | RADRPT ---
EXAM DATE/TIME: 06/21/2017 08:27 [facility] COMPARISON: CT THORAX W/O CONTRAST, June 13, 2017, 13:34. CT ABDOMEN & PELVIS W CONTRAST, June 10, 2017, 16:40. CHEST SINGLE AP, June 21, 2017, 5:18. INDICATIONS : Abnormal chest X-ray. RADIATION DOSE: 9.59 CTDIvol (mGy) MEDICAL HISTORY : Hypertension. diabetes SURGICAL HISTORY : None. ENCOUNTER: Initial ACUITY: 1 day PAIN SCALE: 0/10 LOCATION: Bilateral chest TECHNIQUE: Volumetric scanning of the chest was performed. Using automated exposure control and adjustment of t he mA and/or kV according to patient size, radiation dose was kept as low as reasonably achievable to obtain optimal diagnostic quality images. DICOM format image data is available electronically for r eview and comparison. Follow-up recommendations for detected pulmonary nodules are based at a minimum on nodule size and pa tient risk factors according to Fleischner Society Guidelines. FINDINGS: LUNGS: Left basilar consolidation with air bronchograms. Minimal right basilar consolidation. Minimal patchy densities right middle lobe laterally. PLEURAE: Moderate left and small right pleural effusion. MEDIASTINUM: Extensive coronary artery calcifications. Cardiomegaly.. AXILLAE: Within normal limits. No lymphadenopathy. MUSCULOSKELETAL: Multiple left-sided rib fractures. MISCELLANEOUS: The visualized upper abdominal organs demonstrate irregular appearance of the spleen with adjacent he morrhage.. CONCLUSION: 1. Moderate left pleural effusion/hemothorax. 2. Small right pleural effusion. 3. Bibasilar consolidation greater left lower lobe. 4. Irregular appearance of the spleen not completely visualized with adjacent hemorrhage. Tyler Benjamin MD on June 21, 2017 at 8:47 Board Certified Radiologist. This report was verified electronically.
[2017-06-21] MEDS: FUROSEMIDE 40 MG/4 ML VIAL IV PUSH SCH ×2 (09:00→17:15)
[2017-06-21] MEDS: POTASSIUM CHLORIDE 25 MEQ EFFERVESCENT TAB PO SCH ×2 (09:00→20:06)
[2017-06-21] MEDS: BACITRACIN TOP OINT 15 GM TUBE TOP SCH ×2 (09:00→21:00)
[2017-06-21] MEDS: MUPIROCIN 2% OINT 1 APPLIC/GM SYR EACH NARE SCH (09:00)
[2017-06-21] MEDS: ENOXAPARIN SODIUM 40 MG/0.4 ML SYRINGE SQ SCH (09:01)
[2017-06-21] MEDS: LACTULOSE SYRUP 20 GM/30 ML CUP PO SCH (09:01)
[2017-06-21] MEDS: LIDOCAINE HCL 5% PATCH T-DERMAL SCH (09:02)
[2017-06-21] MEDS: DOCUSATE SODIUM 50 MG/SENNA 8.6 MG TAB PO SCH ×2 (09:02→20:04)
[2017-06-21] MEDS: ALLOPURINOL 300 MG TAB PO SCH (09:02)
[2017-06-21] MEDS ORDERED: POTASSIUM CHLORIDE 20 MEQ CONTROLLED RELEASE TAB PO SCH (10:00)
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
[2017-06-21 12:00] VITALS: BP 142/84; PULSE 85; RESP 22; TEMP 96.5; O2SAT 95
[2017-06-21 16:00] VITALS: BP 149/74; PULSE 78; RESP 22; TEMP 96.5; O2SAT 94
[2017-06-21 20:00] VITALS: BP 155/75; PULSE 71; RESP 17; TEMP 96.8; O2SAT 94
[2017-06-21] MEDS: REMOVE OLD PATCH T-DERMAL SCH (21:00)
[2017-06-21 21:38] VITALS: O2SAT 94
[2017-06-21] MEDS: ZOLPIDEM TARTRATE 5 MG TAB PO PRN (22:51)
[2017-06-22] VITALS (7 sets, daily range): BP systolic 132–177; BP diastolic 71–95; PULSE 68–94; RESP 17–24; TEMP 96.5–97.1; O2SAT 94–96
[2017-06-22] MEDS: VANCOMYCIN INJ 1,500 MG in SODIUM CHLORID 0.9% 500 ML INJ 500 ML IV SCH ×3 (00:08→23:39)
[2017-06-22] MEDS: METHOCARBAMOL 500 MG TAB PO SCH ×3 (05:35→22:41)
[2017-06-22] MEDS: ACETAMINOPHEN/HYDROcodone 325 MG/10 MG TAB PO PRN ×4 (05:35→20:28)
[2017-06-22] MEDS: CEFEPIME INJ 2,000 MG in SODIUM CHLORIDE 0.9% INJ 100 ML IV SCH ×3 (05:36→22:41)
[2017-06-22 06:28] LABS: AUTOMATED NEUTROPHIL # 17.4 TH/MM3 (1.8-7.7); BASOPHIL # 0.2 TH/MM3 (0-0.2); EOSINOPHIL # 0.3 TH/MM3 (0-0.4); EOSINOPHIL % 1.2 % (0.0-4.0); HEMATOCRIT 35.6 % (39.0-51.0); HEMO FLAGS DIFF FINAL; LYMPH % 4.4 % (9.0-44.0); LYMPHOCYTE # 0.9 TH/MM3 (1.0-4.8); MEAN CELL VOLUME 91.9 FL (80.0-100.0); MEAN CORPUSCULAR HEMOGLOBIN 29.6 PG (27.0-34.0); MEAN CORPUSCULAR HGB CONC 32.2 % (32.0-36.0); NEUT % 84.4 % (16.0-70.0); PLATELET COUNT 143 TH/MM3 (150-450); RED BLOOD COUNT 3.88 MIL/MM3 (4.50-5.90); RED CELL DISTRIBUTION WIDTH 17.9 % (11.6-17.2); WHITE BLOOD COUNT 20.6 TH/MM3 (4.0-11.0)
[2017-06-22 06:59] LABS: BICARBONATE 31.8 MEQ/L (21.0-32.0); POTASSIUM 3.1 MEQ/L (3.5-5.1)
[2017-06-22] MEDS: INSULIN NovoLIN REGULAR SUPPLEMENTAL SCALE SQ SCH ×4 (08:00→20:43)
[2017-06-22] MEDS ORDERED: POTASSIUM CHLORIDE 20 MEQ CONTROLLED RELEASE TAB PO ONE (08:30)
[2017-06-22] MEDS: LACTULOSE SYRUP 20 GM/30 ML CUP PO SCH (09:00)
[2017-06-22] MEDS: BACITRACIN TOP OINT 15 GM TUBE TOP SCH ×2 (09:00→20:46)
[2017-06-22] MEDS: DOCUSATE SODIUM 50 MG/SENNA 8.6 MG TAB PO SCH ×2 (09:00→20:28)
[2017-06-22] MEDS: ALLOPURINOL 300 MG TAB PO SCH (09:00)
[2017-06-22] MEDS: ENOXAPARIN SODIUM 40 MG/0.4 ML SYRINGE SQ SCH (09:00)
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
[2017-06-22] MEDS: DILTIAZEM-CD 240 MG CAP ER PO SCH (09:43)
[2017-06-22] MEDS: LIDOCAINE HCL 5% PATCH T-DERMAL SCH (09:43)
[2017-06-22] MEDS: FUROSEMIDE 40 MG/4 ML VIAL IV PUSH SCH ×2 (09:43→17:55)
[2017-06-22] MEDS: POTASSIUM CHLORIDE 25 MEQ EFFERVESCENT TAB PO SCH ×2 (09:44→20:28)
[2017-06-22] MEDS ORDERED: POTASSIUM CHLORIDE 10 MEQ CONTROLLED RELEASE TAB PO ONE (16:00)
[2017-06-22] MEDS: REMOVE OLD PATCH T-DERMAL SCH (20:45)
[2017-06-22] MEDS: ZOLPIDEM TARTRATE 5 MG TAB PO PRN (22:41)
[2017-06-23] VITALS: BP 168/75; PULSE 91; RESP 20; TEMP 97; O2SAT 94
[2017-06-23] MEDS: ACETAMINOPHEN/HYDROcodone 325 MG/10 MG TAB PO PRN ×5 (02:09→22:51)
[2017-06-23] MEDS: METHOCARBAMOL 500 MG TAB PO SCH ×3 (06:11→19:58)
[2017-06-23] MEDS: CEFEPIME INJ 2,000 MG in SODIUM CHLORIDE 0.9% INJ 100 ML IV SCH ×3 (06:12→19:58)
[2017-06-23 08:00] VITALS: BP 169/81; PULSE 82; RESP 19; TEMP 96.7; O2SAT 94
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
[2017-06-23] MEDS: BACITRACIN TOP OINT 15 GM TUBE TOP SCH ×2 (09:00→19:58)
[2017-06-23] MEDS: LACTULOSE SYRUP 20 GM/30 ML CUP PO SCH (09:00)
[2017-06-23] MEDS: DOCUSATE SODIUM 50 MG/SENNA 8.6 MG TAB PO SCH ×2 (09:00→19:57)
[2017-06-23] MEDS: ENOXAPARIN SODIUM 40 MG/0.4 ML SYRINGE SQ SCH (09:07)
[2017-06-23] MEDS: DILTIAZEM-CD 240 MG CAP ER PO SCH (09:07)
[2017-06-23] MEDS: FUROSEMIDE 40 MG/4 ML VIAL IV PUSH SCH ×2 (09:08→17:16)
[2017-06-23] MEDS: POTASSIUM CHLORIDE 25 MEQ EFFERVESCENT TAB PO SCH ×2 (09:08→19:57)
[2017-06-23 09:15] VITALS: O2SAT 97
[2017-06-23] MEDS: INSULIN NovoLIN REGULAR SUPPLEMENTAL SCALE SQ SCH ×4 (09:17→19:59)
[2017-06-23] MEDS: ALLOPURINOL 300 MG TAB PO SCH (09:19)
[2017-06-23] MEDS: LIDOCAINE HCL 5% PATCH T-DERMAL SCH (09:23)
[2017-06-23] MEDS ORDERED: PHARMACY ORDERED LAB ONE (11:45)
[2017-06-23 12:00] VITALS: BP 119/70; PULSE 99; RESP 19; TEMP 96.5; O2SAT 91
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
[2017-06-23] MEDS ORDERED: WALKER WHEELS/F1 MIS (13:13)
--- NOTE | 2017-06-23 13:27 | HHI.IDPN ---
Subjective Subjective Remarks tapping on hold 2/2 anticoagulation no fever breathing seems better Antibiotics vanco cefepime Allergies: Coded Allergies: No Known Allergies (Unverified , 06/14/17) Objective . Vital Signs Date Time Temp Pulse Resp B/P (MAP) Pulse Ox O2 Delivery O2 Flow Rate FiO2 06/23/17 12:00 96.5 99 19 119/70 (86) 91 06/23/17 09:15 97 21 06/23/17 08:00 96.7 82 19 169/81 (110) 94 06/23/17 00:00 97.0 91 20 168/75 (106) 94 06/22/17 21:35 Nasal Cannula 4.00 06/22/17 20:00 97.1 94 20 177/95 (122) 95 177/81 (113) 06/22/17 19:25 95 Nasal Cannula 4.00 06/22/17 16:21 4.00 06/22/17 16:00 97.1 87 23 166/86 (112) 96 . Laboratory Tests Test 06/22/17 05:57 White Blood Count 20.6 TH/MM3 Red Blood Count 3.88 MIL/MM3 Hemoglobin 11.5 GM/DL Hematocrit 35.6 % Mean Corpuscular Volume 91.9 FL Mean Corpuscular Hemoglobin 29.6 PG Mean Corpuscular Hemoglobin Concent 32.2 % Red Cell Distribution Width 17.9 % Platelet Count 143 TH/MM3 Mean Platelet Volume 9.7 FL Neutrophils (%) (Auto) 84.4 % Lymphocytes (%) (Auto) 4.4 % Monocytes (%) (Auto) 9.0 % Eosinophils (%) (Auto) 1.2 % Basophils (%) (Auto) 1.0 % Neutrophils # (Auto) 17.4 TH/MM3 Lymphocytes # (Auto) 0.9 TH/MM3 Monocytes # (Auto) 1.8 TH/MM3 Eosinophils # (Auto) 0.3 TH/MM3 Basophils # (Auto) 0.2 TH/MM3 CBC Comment DIFF FINAL Differential Comment Laboratory Tests Test 06/22/17 05:57 Blood Urea Nitrogen 14 MG/DL Creatinine 0.39 MG/DL Random Glucose 166 MG/DL Calcium Level 7.7 MG/DL Sodium Level 137 MEQ/L Potassium Level 3.1 MEQ/L Chloride Level 98 MEQ/L Carbon Dioxide Level 31.8 MEQ/L Anion Gap 7 MEQ/L Estimat Glomerular Filtration Rate 222 ML/MIN Imaging Last Impressions Chest X-Ray 06/21/17 0600 Signed Impressions: Service Date/Time: Wednesday, June 21, 2017 05:18 - CONCLUSION: 1. Stable chest x-ray with left pleural effusion with associated volume loss and/or consolidation. 2. Stable enlargement of the cardiac silhouette. Rojelio Piper MD Chest CT 06/21/17 0000 Signed Impressions: Service Date/Time: Wednesday, June 21, 2017 08:27 - CONCLUSION: 1. Moderate left pleural effusion/hemothorax. 2. Small right pleural effusion. 3. Bibasilar consolidation greater left lower lobe. 4. Irregular appearance of the spleen not completely visualized with adjacent hemorrhage. Tyler Benjamin MD Thoracic Spine X-Ray 06/16/17 0000 Signed Impressions: Service Date/Time: Friday, June 16, 2017 17:12 - CONCLUSION: 1. Fracture through the upper half of the T8 vertebral body. 2. Multilevel flowing osteophytes of the dorsal spine characteristic of DISH. 3. Airspace consolidation, most prominent in the medial right base. Baldo Meneses MD Abdomen/Pelvis CT 06/13/17 0000 Signed Impressions: Service Date/Time: Tuesday, June 13, 2017 13:36 - CONCLUSION: 1. Heterogeneous splenic parenchyma containing a small focus of air with perisplenic hematoma consistent with recent Gelfoam embolization of splenic parenchymal hemorrhage. 2. Small amount of hemoperitoneum, mildly increased since original CT examination. This likely reflects hemorrhage prior to embolization of the spleen. However, intercurrent hemorrhage cannot be entirely excluded. Additionally, active hemorrhage cannot be evaluated for due to lack of IV contrast on this exam. Clinical correlation with hemodynamic status and H&H levels is recommended. 3. Redemonstration of L1 and L2 left transverse process fractures and multiple left lower rib fractures. 4. Redemonstration of nonobstructing calyceal renal calculi measuring up to 11 mm on the right. Jelani Westfall MD Thoracic Spine CT 06/11/17 0000 Signed Impressions: Service Date/Time: Saturday, June 10, 2017 16:35 - CONCLUSION: 1. Two column inferior endplate fracture of the T8 vertebral body extending through the posterior cortex. 2. Distraction of the anterior fracture cleft consistent with at least disruption of the anterior longitudinal ligament. Mechanism of injury is concerning for possible posterior longitudinal ligament injury as well. MRI examination may be performed for further evaluation as clinically warranted. 3. No retropulsed fragments with patent bony central canal. 4. Nondisplaced fracture of the posterior left 11th rib at the costovertebral junction. Jelani Westfall MD Lumbar Spine CT 06/11/17 0000 Signed Impressions: Service Date/Time: Saturday, June 10, 2017 16:35 - CONCLUSION: Prominent anterior lumbar spine osteophytes throughout the lower lumbar spine. No compression deformities identified. L1 transverse process fracture on the left. Retroperitoneal hemorrhage anterior to both psoas muscles is again noted. Artis Villanueva MD Pelvis X-Ray 06/10/17 1625 Signed Impressions: Service Date/Time: Saturday, June 10, 2017 16:25 - CONCLUSION: Unremarkable examination of the pelvis. Artis Villanueva MD Maxillofacial CT 06/10/17 1625 Signed Impressions: Service Date/Time: Saturday, June 10, 2017 16:31 - CONCLUSION: Fluid in the right maxillary sinus without a displaced fracture. Question of a hairline fracture at the base of the left nasal bone. Artis Villanueva MD Head CT 06/10/17 1625 Signed Impressions: Service Date/Time: Saturday, June 10, 2017 16:31 - CONCLUSION: Normal examination. Artis Villanueva MD Cervical Spine CT 06/10/17 1625 Signed Impressions: Service Date/Time: Saturday, June 10, 2017 16:31 - CONCLUSION: Prominent anterior osteophytes. No evidence of an acute fracture, lytic or blastic lesion. Artis Villanueva MD Splenic Arteriogram 06/10/17 0000 Signed Impressions: Service Date/Time: Saturday, June 10, 2017 20:54 - CONCLUSION: Intraparenchymal hemorrhage involving the spleen with successful Gelfoam embolization utilizing selected technique with preserved flow to the spleen. No further hemorrhage seen. Devon Bhatt Jr., MD Physical Exam CONSTITUTIONAL/GENERAL: This is a obese elderly patient, in no apparent distress. SKIN: No jaundice, rashes, or lesions. Ecchymoses on upper extremities. No wounds seen anteriorly. Skin temperature appropriate. Not diaphoretic. EYES: Pupils equal and round and reactive. Extraocular motions intact. No scleral icterus. No injection or drainage. Fundi not examined. CARDIOVASCULAR: Regular rate and rhythm without murmurs, gallops, or rubs. No JVD. Peripheral pulses symmetric. RESPIRATORY/CHEST: Symmetric, unlabored respirations. Today not tachypneic Clear to auscultation. Breath sounds decreased bilaterally. No wheezes, rales, or rhonchi. GASTROINTESTINAL: Abdomen soft, non-tender, quite distended. . No guarding. Bowel sounds present. GENITOURINARY: Without palpable bladder distension. MUSCULOSKELETAL: Extremities without clubbing, cyanosis, + Marked chronic appearing edema with chronic hyperpigmentation. Edema less prominent No joint tenderness or effusion noted. No calf tenderness. No mottling or clubbing. NEUROLOGICAL: Awake and alert. Motor and sensory grossly within normal limits. Follows commands. clear speech. Moves all extremities. PSYCHIATRIC: No obvious anxiety/depression. no apparent hallucinations or other psychotic thought process. Assessment & Plan Remarks Multitrauma including ,multiple rib fractures with pulmonary contusions PNA, MRSA , Kleb CT showed hemathorax ? infected Improving resp status ABx assiciated diarrhea - C.diff negative Persistent leukocytosis cont vanco, cefepime monitor WBC awaitig for tapping will follow clx Roxi Draper MD Jun 23, 2017 13:27
[2017-06-23 15:36] LABS: AUTOMATED NEUTROPHIL # 14.1 TH/MM3 (1.8-7.7); BASOPHIL # 0.1 TH/MM3 (0-0.2); BASOPHIL % 0.8 % (0.0-2.0); EOSINOPHIL # 0.1 TH/MM3 (0-0.4); EOSINOPHIL % 0.8 % (0.0-4.0); HEMATOCRIT 38.3 % (39.0-51.0); HEMO FLAGS DIFF FINAL; LYMPH % 5.3 % (9.0-44.0); LYMPHOCYTE # 0.9 TH/MM3 (1.0-4.8); MEAN CELL VOLUME 92.6 FL (80.0-100.0); MEAN CORPUSCULAR HEMOGLOBIN 30.3 PG (27.0-34.0); MEAN CORPUSCULAR HGB CONC 32.7 % (32.0-36.0); MONO % 8.3 % (0.0-8.0); NEUT % 84.8 % (16.0-70.0); PLATELET COUNT 168 TH/MM3 (150-450); RED BLOOD COUNT 4.13 MIL/MM3 (4.50-5.90); RED CELL DISTRIBUTION WIDTH 18.4 % (11.6-17.2); WHITE BLOOD COUNT 16.6 TH/MM3 (4.0-11.0)
[2017-06-23 16:00] VITALS: BP 156/74; PULSE 85; RESP 19; TEMP 98.3; O2SAT 90
[2017-06-23] MEDS: VANCOMYCIN INJ 1,500 MG in SODIUM CHLORID 0.9% 500 ML INJ 500 ML IV SCH ×2 (16:31→22:47)
[2017-06-23] MEDS: REMOVE OLD PATCH T-DERMAL SCH (19:58)
[2017-06-23 20:00] VITALS: BP 127/72; PULSE 79; RESP 17; TEMP 96.1; O2SAT 93
[2017-06-23] MEDS: ZOLPIDEM TARTRATE 5 MG TAB PO PRN (22:48)
[2017-06-24] VITALS (8 sets, daily range): BP systolic 109–143; BP diastolic 63–76; PULSE 72–88; RESP 16–18; TEMP 96–99; O2SAT 93–96
[2017-06-24] MEDS: METHOCARBAMOL 500 MG TAB PO SCH ×3 (05:19→21:01)
[2017-06-24] MEDS: CEFEPIME INJ 2,000 MG in SODIUM CHLORIDE 0.9% INJ 100 ML IV SCH ×3 (05:20→22:37)
[2017-06-24] MEDS: ACETAMINOPHEN/HYDROcodone 325 MG/10 MG TAB PO PRN ×4 (05:23→22:38)
[2017-06-24 06:09] LABS: BASOPHIL # 0.1 TH/MM3 (0-0.2); BASOPHIL % 0.8 % (0.0-2.0); EOSINOPHIL # 0.1 TH/MM3 (0-0.4); EOSINOPHIL % 0.8 % (0.0-4.0); HEMO FLAGS DIFF FINAL; LYMPH % 5.6 % (9.0-44.0); LYMPHOCYTE # 0.9 TH/MM3 (1.0-4.8); MEAN CELL VOLUME 92.8 FL (80.0-100.0); MEAN CORPUSCULAR HEMOGLOBIN 30.5 PG (27.0-34.0); MEAN CORPUSCULAR HGB CONC 32.9 % (32.0-36.0); MONO % 10.4 % (0.0-8.0); NEUT % 82.4 % (16.0-70.0); PLATELET COUNT 169 TH/MM3 (150-450); RED BLOOD COUNT 3.88 MIL/MM3 (4.50-5.90); RED CELL DISTRIBUTION WIDTH 18.3 % (11.6-17.2); WHITE BLOOD COUNT 15.8 TH/MM3 (4.0-11.0)
[2017-06-24 06:44] LABS: BICARBONATE 31.6 MEQ/L (21.0-32.0); POTASSIUM 3.3 MEQ/L (3.5-5.1)
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
[2017-06-24] MEDS: INSULIN NovoLIN REGULAR SUPPLEMENTAL SCALE SQ SCH ×4 (08:00→20:59)
[2017-06-24] MEDS ORDERED: LIDOCAINE 1%/EPINEPHrine 1:100,000 SOLN 20 ML VIAL ONE (08:01)
[2017-06-24] MEDS ORDERED: MIDAZOLAM HCL 2 MG/2 ML VIAL ONE (08:52)
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
[2017-06-24] MEDS: BACITRACIN TOP OINT 15 GM TUBE TOP SCH ×2 (09:00→22:42)
[2017-06-24] MEDS: LACTULOSE SYRUP 20 GM/30 ML CUP PO SCH (09:00)
[2017-06-24] MEDS: DOCUSATE SODIUM 50 MG/SENNA 8.6 MG TAB PO SCH ×2 (09:00→20:57)
--- NOTE | 2017-06-24 09:31 | PD.RAD ---
Post CT Procedure Prog Note Pre Procedure Diagnosis: (1) Hemothorax, left Post Procedure Diagnosis: (1) Hemothorax, left Procedure Date: Jun 24, 2017 Supervising Radiologist: Jefe Argueta Anesthesia: Local, Conscious Sedation Plan of Activity Patient to Unit: Nursing Unit Patient Condition: Fair See PACS Report for procedural detail/treatment Drainage Procedure Procedure 1 Imaging Guidance: CT Side: Left Procedure Type: Chest Tube Non-Tunneled Procedure: Placement Drainage: Pleurovac Fluid Removal (CCs): 500 Fluid Description: Bloody Jefe Argueta MD Jun 24, 2017 09:31
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
--- NOTE | 2017-06-24 10:12 | RADRPT ---
EXAM DATE/TIME: 06/24/2017 08:39 INDICATIONS : Hemothorax. SEDATION TIME: 45 minutes MEDICATION(S): 1.) 2 mg midazolam (Versed) IV 2.) 100 mcg fentanyl (Sublimaze) IV DEVICE(S): 1.) 18 gauge Severino blunt needle 2.) 16 gauge Skater FLUID: Total volume of 500 cc of red fluid was removed. MEDICAL HISTORY : Diabetes mellitus type 2. Hypertension. SURGICAL HISTORY : None. ENCOUNTER: Initial ACUITY: 1 day PAIN SCORE: 7/10 LOCATION: Left chest PROCEDURE: 1.) Conscious sedation with continuous EKG and oximetry monitoring. 2.) EKG and oximetry remained stable throughout the procedure. PROCEDURE : 1. CT guided chest tube placement. 2. Conscious sedation with continuous EKG and oximetry monitoring. The risks, benefits and alternatives to the procedure were explained and verbal and written consent w as obtained. The site was prepped in sterile fashion. Full sterile technique was used, including ca p, mask, sterile gloves and gown and a large sterile sheet. Hand hygiene and 2% chlorhexidine and/or betadine/alcohol prep was utilized per protocol for cutaneous antisepsis. The skin and subcutaneous tissues were infiltrated with local anesthetic solution. Using automated exposure control and adjus tment of the mA and/or kV according to patient size, radiation dose was kept as low as reasonably ach ievable to obtain optimal diagnostic quality images. DICOM format image data is available electronic ally for review and comparison. With CT guidance the chest was punctured and the prescribed catheter was placed in the left lung base .. Wall suction was applied. Post procedure images demonstrate satisfactory position of the tube. T he catheter was sutured in place and a Percu-Stay was applied. 500 cc of bloody effusion was removed. Conscious sedation was performed with the prescribed dosages and duration as above. The patient emilia ated the procedure well and there were no complications. EKG and oximetry remained stable throughout the procedure. The patient was sent to post anesthesia recovery in stable condition. CONCLUSION: Uncomplicated chest tube placement as above. Jefe Argueta MD on June 24, 2017 at 10:07 Board Certified Radiologist. This report was verified electronically.
[2017-06-24] MEDS: ALLOPURINOL 300 MG TAB PO SCH (11:30)
[2017-06-24] MEDS: POTASSIUM CHLORIDE 25 MEQ EFFERVESCENT TAB PO SCH ×2 (11:30→20:59)
[2017-06-24] MEDS: FUROSEMIDE 40 MG/4 ML VIAL IV PUSH SCH (11:30)
[2017-06-24] MEDS: DILTIAZEM-CD 240 MG CAP ER PO SCH (11:30)
[2017-06-24] MEDS: LIDOCAINE HCL 5% PATCH T-DERMAL SCH (11:31)
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
[2017-06-24] MEDS: VANCOMYCIN INJ 1,500 MG in SODIUM CHLORID 0.9% 500 ML INJ 500 ML IV SCH (13:04)
--- NOTE | 2017-06-24 13:40 | HHI.IDPN ---
Subjective Subjective Remarks sp CT placement - bloody fluid was obtained; no clx available feels better breathing better afebrile no diarrhea Antibiotics vanco cefepime Allergies: Coded Allergies: No Known Allergies (Unverified , 06/14/17) Objective . Vital Signs Date Time Temp Pulse Resp B/P (MAP) Pulse Ox O2 Delivery O2 Flow Rate FiO2 06/24/17 12:00 97.5 72 16 109/67 (81) 95 06/24/17 10:35 84 18 121/70 (87) 96 06/24/17 10:05 84 18 115/69 (84) 95 06/24/17 09:50 98.4 80 18 124/71 (88) 95 06/24/17 08:00 97.6 87 17 143/75 (97) 96 06/24/17 00:00 96.0 88 17 142/76 (98) 95 06/23/17 20:10 95 Nasal Cannula 4.00 06/23/17 20:00 96.1 79 17 127/72 (90) 93 06/23/17 16:00 98.3 85 19 156/74 (101) 90 06/24/17 06/24/17 06/25/17 15:00 23:00 07:00 Output Total 1400 ml Balance -1400 ml Chest Tube Drainage Total 1400 ml . Laboratory Tests Test 06/23/17 14:51 06/24/17 05:15 White Blood Count 16.6 TH/MM3 15.8 TH/MM3 Red Blood Count 4.13 MIL/MM3 3.88 MIL/MM3 Hemoglobin 12.5 GM/DL 11.8 GM/DL Hematocrit 38.3 % 36.0 % Mean Corpuscular Volume 92.6 FL 92.8 FL Mean Corpuscular Hemoglobin 30.3 PG 30.5 PG Mean Corpuscular Hemoglobin Concent 32.7 % 32.9 % Red Cell Distribution Width 18.4 % 18.3 % Platelet Count 168 TH/MM3 169 TH/MM3 Mean Platelet Volume 9.9 FL 9.4 FL Neutrophils (%) (Auto) 84.8 % 82.4 % Lymphocytes (%) (Auto) 5.3 % 5.6 % Monocytes (%) (Auto) 8.3 % 10.4 % Eosinophils (%) (Auto) 0.8 % 0.8 % Basophils (%) (Auto) 0.8 % 0.8 % Neutrophils # (Auto) 14.1 TH/MM3 13.0 TH/MM3 Lymphocytes # (Auto) 0.9 TH/MM3 0.9 TH/MM3 Monocytes # (Auto) 1.4 TH/MM3 1.7 TH/MM3 Eosinophils # (Auto) 0.1 TH/MM3 0.1 TH/MM3 Basophils # (Auto) 0.1 TH/MM3 0.1 TH/MM3 CBC Comment DIFF FINAL DIFF FINAL Differential Comment Laboratory Tests Test 06/24/17 05:15 Blood Urea Nitrogen 14 MG/DL Creatinine 0.45 MG/DL Random Glucose 179 MG/DL Calcium Level 7.9 MG/DL Sodium Level 138 MEQ/L Potassium Level 3.3 MEQ/L Chloride Level 99 MEQ/L Carbon Dioxide Level 31.6 MEQ/L Anion Gap 7 MEQ/L Estimat Glomerular Filtration Rate 188 ML/MIN Imaging Last Impressions Chest X-Ray 06/24/17 0600 Signed Impressions: Service Date/Time: Saturday, June 24, 2017 06:27 - CONCLUSION: Consolidation left lower lobe with a moderate-sized left pleural effusion stable. Rib fractures as above. Artis Villanueva MD Chest Tube Insertion 06/24/17 0000 Signed Impressions: Service Date/Time: Saturday, June 24, 2017 08:39 - CONCLUSION: Uncomplicated chest tube placement as above. Jefe Argueta MD Chest CT 06/21/17 0000 Signed Impressions: Service Date/Time: Wednesday, June 21, 2017 08:27 - CONCLUSION: 1. Moderate left pleural effusion/hemothorax. 2. Small right pleural effusion. 3. Bibasilar consolidation greater left lower lobe. 4. Irregular appearance of the spleen not completely visualized with adjacent hemorrhage. Tyler Benjamin MD Thoracic Spine X-Ray 06/16/17 0000 Signed Impressions: Service Date/Time: Friday, June 16, 2017 17:12 - CONCLUSION: 1. Fracture through the upper half of the T8 vertebral body. 2. Multilevel flowing osteophytes of the dorsal spine characteristic of DISH. 3. Airspace consolidation, most prominent in the medial right base. Baldo Meneses MD Abdomen/Pelvis CT 06/13/17 0000 Signed Impressions: Service Date/Time: Tuesday, June 13, 2017 13:36 - CONCLUSION: 1. Heterogeneous splenic parenchyma containing a small focus of air with perisplenic hematoma consistent with recent Gelfoam embolization of splenic parenchymal hemorrhage. 2. Small amount of hemoperitoneum, mildly increased since original CT examination. This likely reflects hemorrhage prior to embolization of the spleen. However, intercurrent hemorrhage cannot be entirely excluded. Additionally, active hemorrhage cannot be evaluated for due to lack of IV contrast on this exam. Clinical correlation with hemodynamic status and H&H levels is recommended. 3. Redemonstration of L1 and L2 left transverse process fractures and multiple left lower rib fractures. 4. Redemonstration of nonobstructing calyceal renal calculi measuring up to 11 mm on the right. Jelani Westfall MD Thoracic Spine CT 06/11/17 0000 Signed Impressions: Service Date/Time: Saturday, June 10, 2017 16:35 - CONCLUSION: 1. Two column inferior endplate fracture of the T8 vertebral body extending through the posterior cortex. 2. Distraction of the anterior fracture cleft consistent with at least disruption of the anterior longitudinal ligament. Mechanism of injury is concerning for possible posterior longitudinal ligament injury as well. MRI examination may be performed for further evaluation as clinically warranted. 3. No retropulsed fragments with patent bony central canal. 4. Nondisplaced fracture of the posterior left 11th rib at the costovertebral junction. Jelani Westfall MD Lumbar Spine CT 06/11/17 0000 Signed Impressions: Service Date/Time: Saturday, June 10, 2017 16:35 - CONCLUSION: Prominent anterior lumbar spine osteophytes throughout the lower lumbar spine. No compression deformities identified. L1 transverse process fracture on the left. Retroperitoneal hemorrhage anterior to both psoas muscles is again noted. Artis Villanueva MD Pelvis X-Ray 06/10/17 1625 Signed Impressions: Service Date/Time: Saturday, June 10, 2017 16:25 - CONCLUSION: Unremarkable examination of the pelvis. Artis Villanueva MD Maxillofacial CT 06/10/17 1625 Signed Impressions: Service Date/Time: Saturday, June 10, 2017 16:31 - CONCLUSION: Fluid in the right maxillary sinus without a displaced fracture. Question of a hairline fracture at the base of the left nasal bone. Artis Villanueva MD Head CT 06/10/171624 Signed Impressions: Service Date/Time: Saturday, June 10, 2017 16:31 - CONCLUSION: Normal examination. Artis Villanueva MD Cervical Spine CT 06/10/17 1625 Signed Impressions: Service Date/Time: Saturday, June 10, 2017 16:31 - CONCLUSION: Prominent anterior osteophytes. No evidence of an acute fracture, lytic or blastic lesion. Artis Villanueva MD Splenic Arteriogram 06/10/17 0000 Signed Impressions: Service Date/Time: Saturday, June 10, 2017 20:54 - CONCLUSION: Intraparenchymal hemorrhage involving the spleen with successful Gelfoam embolization utilizing selected technique with preserved flow to the spleen. No further hemorrhage seen. Devon Bhatt Jr., MD Physical Exam CONSTITUTIONAL/GENERAL: This is a obese elderly patient, in no apparent distress. SKIN: No jaundice, rashes, or lesions. Ecchymoses on upper extremities. No wounds seen anteriorly. Skin temperature appropriate. Not diaphoretic. EYES: Pupils equal and round and reactive. Extraocular motions intact. No scleral icterus. No injection or drainage. Fundi not examined. CARDIOVASCULAR: Regular rate and rhythm without murmurs, gallops, or rubs. No JVD. Peripheral pulses symmetric. RESPIRATORY/CHEST: Symmetric, unlabored respirations. Today not tachypneic Clear to auscultation. Breath sounds decreased bilaterally. No wheezes, rales, or rhonchi. CT place with serosang dc GASTROINTESTINAL: Abdomen soft, non-tender, quite distended. . No guarding. Bowel sounds present. GENITOURINARY: Without palpable bladder distension. MUSCULOSKELETAL: Extremities without clubbing, cyanosis, + Marked chronic appearing edema with chronic hyperpigmentation. Edema less prominent No joint tenderness or effusion noted. No calf tenderness. No mottling or clubbing. NEUROLOGICAL: Awake and alert. Motor and sensory grossly within normal limits. Follows commands. clear speech. Moves all extremities. PSYCHIATRIC: No obvious anxiety/depression. no apparent hallucinations or other psychotic thought process. Assessment & Plan Remarks Multitrauma including ,multiple rib fractures with pulmonary contusions PNA, MRSA , Kleb CT showed hemathorax ? infected Improving resp status ABx assiciated diarrhea - C.diff negative Persistent leukocytosis : improving cont vanco, cefepime monitor WBC will send clx from CT will follow clx dw Roxi Sauceda MD Jun 24, 2017 13:40
[2017-06-24] MEDS: REMOVE OLD PATCH T-DERMAL SCH (21:00)
[2017-06-24] MEDS: ZOLPIDEM TARTRATE 5 MG TAB PO PRN (22:38)
[2017-06-25] VITALS: BP 139/74; PULSE 86; RESP 17; TEMP 96.5; O2SAT 96
[2017-06-25] MEDS: VANCOMYCIN INJ 1,500 MG in SODIUM CHLORID 0.9% 500 ML INJ 500 ML IV SCH ×3 (00:32→23:20)
[2017-06-25] MEDS: ACETAMINOPHEN/HYDROcodone 325 MG/10 MG TAB PO PRN ×4 (05:11→23:19)
[2017-06-25] MEDS: METHOCARBAMOL 500 MG TAB PO SCH ×3 (05:11→21:00)
[2017-06-25] MEDS: CEFEPIME INJ 2,000 MG in SODIUM CHLORIDE 0.9% INJ 100 ML IV SCH ×3 (05:12→21:01)
--- NOTE | 2017-06-25 05:42 | RADRPT ---
EXAM DATE/TIME: 06/25/2017 04:55 [facility] COMPARISON: CHEST SINGLE AP, June 24, 2017, 6:27. INDICATIONS : Shortness of breath. MEDICAL HISTORY : Hypertension. Diabetes mellitus type II. rib and T8 fractures SURGICAL HISTORY : None. ENCOUNTER: Subsequent ACUITY: 1 week PAIN SCORE: 5/10 LOCATION: Bilateral chest FINDINGS: A single AP erect portable view of the chest was obtained and demonstrates interval placement of a sm allbore left-sided chest tube projected over the left lung base. There has been interval decrease in the opacity in the left lung. The heart size remains mildly enlarged. Left hemidiaphragm remains obsc ured. The left costophrenic angle may be blunted. There are multiple left rib fractures. CONCLUSION: Interval placement of small bore left-sided chest tube with decreased opacity in the left lung consistent with improved effusion. There is no pneumothorax. Nakul Rios MD on June 25, 2017 at 5:39 Board Certified Radiologist. This report was verified electronically.
[2017-06-25 06:06] LABS: AUTOMATED NEUTROPHIL # 11.6 TH/MM3 (1.8-7.7); BASOPHIL # 0.1 TH/MM3 (0-0.2); BASOPHIL % 0.9 % (0.0-2.0); EOSINOPHIL # 0.1 TH/MM3 (0-0.4); HEMATOCRIT 37.2 % (39.0-51.0); HEMO FLAGS DIFF FINAL; LYMPH % 5.9 % (9.0-44.0); LYMPHOCYTE # 0.8 TH/MM3 (1.0-4.8); MEAN CELL VOLUME 94.2 FL (80.0-100.0); MEAN CORPUSCULAR HEMOGLOBIN 30.9 PG (27.0-34.0); MEAN CORPUSCULAR HGB CONC 32.8 % (32.0-36.0); MONO % 8.8 % (0.0-8.0); NEUT % 83.4 % (16.0-70.0); PLATELET COUNT 177 TH/MM3 (150-450); RED BLOOD COUNT 3.95 MIL/MM3 (4.50-5.90); RED CELL DISTRIBUTION WIDTH 18.2 % (11.6-17.2); WHITE BLOOD COUNT 13.9 TH/MM3 (4.0-11.0)
[2017-06-25 06:29] LABS: BICARBONATE 33.8 MEQ/L (21.0-32.0); POTASSIUM 3.6 MEQ/L (3.5-5.1)
[2017-06-25 08:00] VITALS: BP 158/74; PULSE 81; RESP 17; TEMP 95.6; O2SAT 96
[2017-06-25] MEDS: DOCUSATE SODIUM 50 MG/SENNA 8.6 MG TAB PO SCH ×2 (09:00→20:48)
[2017-06-25] MEDS: BACITRACIN TOP OINT 15 GM TUBE TOP SCH ×2 (09:00→20:54)
[2017-06-25] MEDS: LACTULOSE SYRUP 20 GM/30 ML CUP PO SCH (09:00)
[2017-06-25] MEDS: DILTIAZEM-CD 240 MG CAP ER PO SCH (09:29)
[2017-06-25] MEDS: ALLOPURINOL 300 MG TAB PO SCH (09:29)
[2017-06-25] MEDS: POTASSIUM CHLORIDE 25 MEQ EFFERVESCENT TAB PO SCH (09:30)
[2017-06-25] MEDS: ENOXAPARIN SODIUM 40 MG/0.4 ML SYRINGE SQ SCH (09:30)
[2017-06-25] MEDS: INSULIN NovoLIN REGULAR SUPPLEMENTAL SCALE SQ SCH ×4 (09:31→23:17)
[2017-06-25] MEDS: LIDOCAINE HCL 5% PATCH T-DERMAL SCH (09:32)
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
[2017-06-25 12:00] VITALS: BP 167/79; PULSE 85; RESP 17; TEMP 96.8; O2SAT 94
[2017-06-25 16:00] VITALS: BP 145/71; PULSE 72; RESP 17; TEMP 96.8; O2SAT 97
--- NOTE | 2017-06-25 16:28 | HHI.PR ---
Addendum to Inpatient Note Additional Information pt was seen around 1100 today full note to follow Roxi Draper MD Jun 25, 2017 16:28
[2017-06-25 20:00] VITALS: BP 143/71; PULSE 75; RESP 16; TEMP 97.7; O2SAT 98
[2017-06-25] MEDS: REMOVE OLD PATCH T-DERMAL SCH (20:52)
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
[2017-06-25] MEDS ORDERED: FAMO20TA2 PO (22:39)
[2017-06-25] MEDS ORDERED: MAGN30S PO (22:39)
[2017-06-25] MEDS: ZOLPIDEM TARTRATE 5 MG TAB PO PRN (23:18)
[2017-06-26] VITALS: BP 154/81; PULSE 86; RESP 18; TEMP 97.4; O2SAT 95
[2017-06-26] MEDS: ACETAMINOPHEN/HYDROcodone 325 MG/10 MG TAB PO PRN ×5 (05:17→23:47)
[2017-06-26] MEDS: METHOCARBAMOL 500 MG TAB PO SCH ×3 (05:17→21:36)
[2017-06-26] MEDS: CEFEPIME INJ 2,000 MG in SODIUM CHLORIDE 0.9% INJ 100 ML IV SCH ×3 (05:18→21:37)
[2017-06-26 05:27] LABS: AUTOMATED NEUTROPHIL # 10.3 TH/MM3 (1.8-7.7); BASOPHIL # 0.1 TH/MM3 (0-0.2); BASOPHIL % 0.8 % (0.0-2.0); EOSINOPHIL # 0.2 TH/MM3 (0-0.4); EOSINOPHIL % 1.7 % (0.0-4.0); HEMATOCRIT 38.7 % (39.0-51.0); HEMO FLAGS DIFF FINAL; LYMPH % 7.2 % (9.0-44.0); LYMPHOCYTE # 0.9 TH/MM3 (1.0-4.8); MEAN CELL VOLUME 93.6 FL (80.0-100.0); MEAN CORPUSCULAR HEMOGLOBIN 29.9 PG (27.0-34.0); MONO % 11.3 % (0.0-8.0); PLATELET COUNT 164 TH/MM3 (150-450); RED BLOOD COUNT 4.13 MIL/MM3 (4.50-5.90); RED CELL DISTRIBUTION WIDTH 18.5 % (11.6-17.2)
--- NOTE | 2017-06-26 07:03 | RADRPT ---
EXAM DATE/TIME: 06/26/2017 06:38 [facility] COMPARISON: CHEST SINGLE AP, June 25, 2017, 4:55. INDICATIONS : Short of breath, some coughing, evaluate effusion and chest tube MEDICAL HISTORY : Hypertension. Diabetes mellitus type II. T8 and rib fractures SURGICAL HISTORY : None. ENCOUNTER: Subsequent ACUITY: 1 week PAIN SCORE: 8/10 LOCATION: Bilateral chest FINDINGS: A single AP portable erect view of the chest was obtained again demonstrates the small bore left-side d chest tube in place with no pneumothorax. The heart size remains moderately enlarged. There is mild hazy opacity at the lung bases. Apparent old healed left-sided rib fractures are again noted. Maybe mild blunting of left costophrenic angle. CONCLUSION: No significant change. Left-sided chest tube in place with no pneumothorax. There may be minimal resi dual left effusion. Nakul Rios MD on June 26, 2017 at 7:00 Board Certified Radiologist. This report was verified electronically.
[2017-06-26 08:00] VITALS: BP 153/80; PULSE 81; RESP 19; TEMP 98.1; O2SAT 98
[2017-06-26] MEDS: INSULIN NovoLIN REGULAR SUPPLEMENTAL SCALE SQ SCH ×4 (08:00→21:37)
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
[2017-06-26] MEDS: MAGNESIUM HYDROXIDE SUSP 30 ML CUP PO SCH ×2 (09:00→21:00)
[2017-06-26] MEDS: DOCUSATE SODIUM 50 MG/SENNA 8.6 MG TAB PO SCH ×2 (09:00→21:00)
[2017-06-26] MEDS: BACITRACIN TOP OINT 15 GM TUBE TOP SCH ×2 (09:00→21:00)
[2017-06-26] MEDS: LACTULOSE SYRUP 20 GM/30 ML CUP PO SCH (09:00)
[2017-06-26] MEDS: ENOXAPARIN SODIUM 40 MG/0.4 ML SYRINGE SQ SCH (09:33)
[2017-06-26] MEDS: LIDOCAINE HCL 5% PATCH T-DERMAL SCH (09:34)
[2017-06-26] MEDS: FAMOTIDINE 20 MG TAB PO SCH ×2 (09:34→21:36)
[2017-06-26] MEDS: ALLOPURINOL 300 MG TAB PO SCH (09:36)
[2017-06-26] MEDS: DILTIAZEM-CD 240 MG CAP ER PO SCH (09:37)
--- NOTE | 2017-06-26 10:46 | HHI.NSPN ---
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 heterotopic calcification within ankylosing spondylitis type changes in the spine. There may be a thin fracture line extending through the right facet into the base of the spinous process, but generally the posterior and middle column appear intact. This appears to be primarily a distraction type injury rather than a flexion-distraction or shear-type injury. There is no evidence of rotational fracture component. The patient is doing well and reports no back pain, neurologically intact. Physical Therapy recommends inpatient rehab at discharge. Plan: Primary management per Trauma/Shipboard Intelligence Analyst. Neuro checks. TLSO brace when OOB. Mobilise patient w/assistance. Follow up x-ray either or . Okay for discharge to rehab from NSGY's perspective. (Harley Peterson) Impression and Plan T8 fracture. There is approximately 3 mm anterior vertebral body distraction, without significant shear between the upper and lower portions of the fracture. The posterior longitudinal ligament, intraspinous and supraspinous ligaments appear intact. The patient has significant heterotopic calcification within ankylosing spondylitis type changes in the spine. There may be a thin fracture line extending through the right facet into the base of the spinous process posterior and middle column appear intact. This appears to be primarily a distraction type injury rather than a flexion-distraction or shear-type injury. There is no evidence of rotational fracture component. The patient is doing well and reports no back pain, neurologically intact. Physical Therapy recommends inpatient rehab at discharge. Discharge planning The exam, history, and the medical decision-making described in the above note were completed with the assistance of the mid-level provider. I reviewed and agree with the findings presented. I attest that I had a [id number] encounter with the patient on the same day, and personally performed and documented my assessment and findings in the medical record. (Devin Oquendo MD) Harley Peterson Jun 26, 2017 10:46 Devin Oquendo MD Jun 29, 2017 20:18
[2017-06-26] MEDS: VANCOMYCIN INJ 1,500 MG in SODIUM CHLORID 0.9% 500 ML INJ 500 ML IV SCH (11:45)
[2017-06-26 12:00] VITALS: BP 150/76; PULSE 82; RESP 18; TEMP 97.6; O2SAT 97
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
--- NOTE | 2017-06-26 15:29 | HHI.PR ---
Addendum to Inpatient Note Additional Information pt was seen today around 12pm - full note to follow Roxi Draper MD Jun 26, 2017 15:29
[2017-06-26 16:00] VITALS: BP 137/70; PULSE 66; RESP 18; TEMP 96.8; O2SAT 98
[2017-06-26 20:00] VITALS: BP 145/66; PULSE 77; RESP 20; TEMP 97.4; O2SAT 97
--- NOTE | 2017-06-26 20:04 | HHI.IDPN ---
Subjective Subjective Remarks delayed entry; pt wa seen earlier today he is afebrile feels better no growth @ 48 hrs on pleural fluid clx CT still draining up to 80 cc/shift Antibiotics vanco cefepime Allergies: Coded Allergies: No Known Allergies (Unverified , 06/14/17) Objective . Vital Signs Date Time Temp Pulse Resp B/P (MAP) Pulse Ox O2 Delivery O2 Flow Rate FiO2 06/26/17 16:00 96.8 66 18 137/70 (92) 98 06/26/17 12:00 97.6 82 18 150/76 (100) 97 06/26/17 08:00 98.1 81 19 153/80 (104) 98 06/26/17 08:00 Nasal Cannula 3.00 06/26/17 06:17 16 06/26/17 00:00 97.4 86 18 154/81 (105) 95 06/25/17 20:00 97.7 75 16 143/71 (95) 98 06/25/17 20:00 Nasal Cannula 4.00 06/26/17 06/26/17 06/27/17 15:00 23:00 07:00 Intake Total 500 ml 544 ml Output Total 100 ml Balance 500 ml 444 ml Intake Oral 444 ml IV Total 500 ml 100 ml Chest Tube Drainage Total 100 ml # Voids 1 # Bowel Movements 0 . Laboratory Tests Test 06/25/17 05:41 06/26/17 05:10 White Blood Count 13.9 TH/MM3 13.0 TH/MM3 Red Blood Count 3.95 MIL/MM3 4.13 MIL/MM3 Hemoglobin 12.2 GM/DL 12.4 GM/DL Hematocrit 37.2 % 38.7 % Mean Corpuscular Volume 94.2 FL 93.6 FL Mean Corpuscular Hemoglobin 30.9 PG 29.9 PG Mean Corpuscular Hemoglobin Concent 32.8 % 32.0 % Red Cell Distribution Width 18.2 % 18.5 % Platelet Count 177 TH/MM3 164 TH/MM3 Mean Platelet Volume 10.0 FL 9.6 FL Neutrophils (%) (Auto) 83.4 % 79.0 % Lymphocytes (%) (Auto) 5.9 % 7.2 % Monocytes (%) (Auto) 8.8 % 11.3 % Eosinophils (%) (Auto) 1.0 % 1.7 % Basophils (%) (Auto) 0.9 % 0.8 % Neutrophils # (Auto) 11.6 TH/MM3 10.3 TH/MM3 Lymphocytes # (Auto) 0.8 TH/MM3 0.9 TH/MM3 Monocytes # (Auto) 1.2 TH/MM3 1.5 TH/MM3 Eosinophils # (Auto) 0.1 TH/MM3 0.2 TH/MM3 Basophils # (Auto) 0.1 TH/MM3 0.1 TH/MM3 CBC Comment DIFF FINAL DIFF FINAL Differential Comment Laboratory Tests Test 06/25/17 05:41 Blood Urea Nitrogen 15 MG/DL Creatinine 0.45 MG/DL Random Glucose 171 MG/DL Calcium Level 7.9 MG/DL Magnesium Level 2.0 MG/DL Sodium Level 137 MEQ/L Potassium Level 3.6 MEQ/L Chloride Level 99 MEQ/L Carbon Dioxide Level 33.8 MEQ/L Anion Gap 4 MEQ/L Estimat Glomerular Filtration Rate 188 ML/MIN Microbiology Date/Time Source Procedure Growth Status 06/24/17 14:31 Fluid Pleural Fluid Gram Stain - Final Resulted 06/24/17 14:31 Fluid Pleural Fluid Body Fluid Culture - Preliminary NO GROWTH IN 48 HOURS. Resulted Imaging Last Impressions Chest X-Ray 06/24/17 0600 Signed Impressions: Service Date/Time: Saturday, June 24, 2017 06:27 - CONCLUSION: Consolidation left lower lobe with a moderate-sized left pleural effusion stable. Rib fractures as above. Artis Villanueva MD Chest Tube Insertion 06/24/17 0000 Signed Impressions: Service Date/Time: Saturday, June 24, 2017 08:39 - CONCLUSION: Uncomplicated chest tube placement as above. Jefe Argueta MD Chest CT 06/21/17 0000 Signed Impressions: Service Date/Time: Wednesday, June 21, 2017 08:27 - CONCLUSION: 1. Moderate left pleural effusion/hemothorax. 2. Small right pleural effusion. 3. Bibasilar consolidation greater left lower lobe. 4. Irregular appearance of the spleen not completely visualized with adjacent hemorrhage. Tyler Benjamin MD Thoracic Spine X-Ray 06/16/17 0000 Signed Impressions: Service Date/Time: Friday, June 16, 2017 17:12 - CONCLUSION: 1. Fracture through the upper half of the T8 vertebral body. 2. Multilevel flowing osteophytes of the dorsal spine characteristic of DISH. 3. Airspace consolidation, most prominent in the medial right base. Baldo Meneses MD Abdomen/Pelvis CT 06/13/17 0000 Signed Impressions: Service Date/Time: Tuesday, June 13, 2017 13:36 - CONCLUSION: 1. Heterogeneous splenic parenchyma containing a small focus of air with perisplenic hematoma consistent with recent Gelfoam embolization of splenic parenchymal hemorrhage. 2. Small amount of hemoperitoneum, mildly increased since original CT examination. This likely reflects hemorrhage prior to embolization of the spleen. However, intercurrent hemorrhage cannot be entirely excluded. Additionally, active hemorrhage cannot be evaluated for due to lack of IV contrast on this exam. Clinical correlation with hemodynamic status and H&H levels is recommended. 3. Redemonstration of L1 and L2 left transverse process fractures and multiple left lower rib fractures. 4. Redemonstration of nonobstructing calyceal renal calculi measuring up to 11 mm on the right. Jelani Westfall MD Thoracic Spine CT 06/11/17 0000 Signed Impressions: Service Date/Time: Saturday, June 10, 2017 16:35 - CONCLUSION: 1. Two column inferior endplate fracture of the T8 vertebral body extending through the posterior cortex. 2. Distraction of the anterior fracture cleft consistent with at least disruption of the anterior longitudinal ligament. Mechanism of injury is concerning for possible posterior longitudinal ligament injury as well. MRI examination may be performed for further evaluation as clinically warranted. 3. No retropulsed fragments with patent bony central canal. 4. Nondisplaced fracture of the posterior left 11th rib at the costovertebral junction. Jelani Westfall MD Lumbar Spine CT 06/11/17 0000 Signed Impressions: Service Date/Time: Saturday, June 10, 2017 16:35 - CONCLUSION: Prominent anterior lumbar spine osteophytes throughout the lower lumbar spine. No compression deformities identified. L1 transverse process fracture on the left. Retroperitoneal hemorrhage anterior to both psoas muscles is again noted. Artis Villanueva MD Pelvis X-Ray 06/10/17 1625 Signed Impressions: Service Date/Time: Saturday, June 10, 2017 16:25 - CONCLUSION: Unremarkable examination of the pelvis. Artis Villanueva MD Maxillofacial CT 06/10/17 1625 Signed Impressions: Service Date/Time: Saturday, June 10, 2017 16:31 - CONCLUSION: Fluid in the right maxillary sinus without a displaced fracture. Question of a hairline fracture at the base of the left nasal bone. Artis Villanueva MD Head CT 06/10/17 1625 Signed Impressions: Service Date/Time: Saturday, June 10, 2017 16:31 - CONCLUSION: Normal examination. Artis Villanueva MD Cervical Spine CT 06/10/17 1625 Signed Impressions: Service Date/Time: Saturday, June 10, 2017 16:31 - CONCLUSION: Prominent anterior osteophytes. No evidence of an acute fracture, lytic or blastic lesion. Artis Villanueva MD Splenic Arteriogram 06/10/17 0000 Signed Impressions: Service Date/Time: Saturday, June 10, 2017 20:54 - CONCLUSION: Intraparenchymal hemorrhage involving the spleen with successful Gelfoam embolization utilizing selected technique with preserved flow to the spleen. No further hemorrhage seen. Devon Bhatt Jr., MD Physical Exam CONSTITUTIONAL/GENERAL: This is a obese elderly patient, in no apparent distress. SKIN: No jaundice, rashes, or lesions. Ecchymoses on upper extremities. No wounds seen anteriorly. Skin temperature appropriate. Not diaphoretic. EYES: Pupils equal and round and reactive. Extraocular motions intact. No scleral icterus. No injection or drainage. Fundi not examined. CARDIOVASCULAR: Regular rate and rhythm without murmurs, gallops, or rubs. No JVD. Peripheral pulses symmetric. RESPIRATORY/CHEST: Symmetric, unlabored respirations. Clear to auscultation. Breath sounds decreased bilaterally. No wheezes, rales, or rhonchi. CT place with serosang dc on L GASTROINTESTINAL: Abdomen soft, non-tender, quite distended. . No guarding. Bowel sounds present. GENITOURINARY: Without palpable bladder distension. MUSCULOSKELETAL: Extremities without clubbing, cyanosis, + Marked chronic appearing edema with chronic hyperpigmentation. Edema less prominent No joint tenderness or effusion noted. No calf tenderness. No mottling or clubbing. NEUROLOGICAL: Awake and alert. Motor and sensory grossly within normal limits. Follows commands. clear speech. Moves all extremities. PSYCHIATRIC: No obvious anxiety/depression. no apparent hallucinations or other psychotic thought process. Assessment & Plan Remarks Multitrauma including ,multiple rib fractures with pulmonary contusions PNA, MRSA , Kleb CT showed hemathorax ? infected Improving resp status ABx assiciated diarrhea - C.diff negative Persistent leukocytosis : improving cont vanco, cefepime monitor WBC fu clx from CT if clx remain negative will cont abx for total of 2 weeks , longer course anticipated in case of empyema dw trauma team: OK to dc pt after CT removed, will complet abx as o/p (zyvox + augmentin or zyvox+ levaquine) Roxi Draper MD Jun 26, 2017 20:04
[2017-06-26] MEDS: REMOVE OLD PATCH T-DERMAL SCH (21:00)
[2017-06-26] MEDS: ZOLPIDEM TARTRATE 5 MG TAB PO PRN (23:46)
[2017-06-27 00:35] VITALS: BP 118/80; PULSE 80; RESP 19; TEMP 97.9; O2SAT 97
[2017-06-27] MEDS: VANCOMYCIN INJ 1,500 MG in SODIUM CHLORID 0.9% 500 ML INJ 500 ML IV SCH ×2 (00:38→11:19)
[2017-06-27 04:30] VITALS: BP 155/74; PULSE 80; RESP 20; TEMP 98; O2SAT 96
[2017-06-27 05:08] LABS: BASOPHIL # 0.1 TH/MM3 (0-0.2); BASOPHIL % 1.2 % (0.0-2.0); EOSINOPHIL # 0.3 TH/MM3 (0-0.4); EOSINOPHIL % 2.8 % (0.0-4.0); HEMATOCRIT 36.5 % (39.0-51.0); HEMO FLAGS DIFF FINAL; LYMPH % 9.8 % (9.0-44.0); MEAN CELL VOLUME 94.6 FL (80.0-100.0); MEAN CORPUSCULAR HEMOGLOBIN 30.5 PG (27.0-34.0); MEAN CORPUSCULAR HGB CONC 32.3 % (32.0-36.0); MONO % 11.3 % (0.0-8.0); NEUT % 74.9 % (16.0-70.0); PLATELET COUNT 171 TH/MM3 (150-450); RED BLOOD COUNT 3.86 MIL/MM3 (4.50-5.90); RED CELL DISTRIBUTION WIDTH 18.6 % (11.6-17.2); WHITE BLOOD COUNT 10.6 TH/MM3 (4.0-11.0)
[2017-06-27 05:24] LABS: ALT (GPT) 15 U/L (12-78); ANION GAP 7 MEQ/L (5-15); AST (GOT) 18 U/L (15-37); BICARBONATE 29.9 MEQ/L (21.0-32.0); BLOOD UREA NITROGEN 11 MG/DL (7-18); CHLORIDE 103 MEQ/L (98-107); GLOMERULAR FILTRATION RATE 209 ML/MIN (>89); POTASSIUM 3.5 MEQ/L (3.5-5.1); SODIUM (NA) 140 MEQ/L (136-145)
[2017-06-27 05:26] LABS: ALKALINE PHOSPHATASE 103 U/L (45-117); TOTAL BILIRUBIN ADULT 1.1 MG/DL (0.2-1.0)
[2017-06-27] MEDS: ACETAMINOPHEN/HYDROcodone 325 MG/10 MG TAB PO PRN ×2 (05:41→11:19)
[2017-06-27] MEDS: METHOCARBAMOL 500 MG TAB PO SCH ×3 (05:41→21:29)
[2017-06-27] MEDS: CEFEPIME INJ 2,000 MG in SODIUM CHLORIDE 0.9% INJ 100 ML IV SCH ×2 (05:42→13:53)
--- NOTE | 2017-06-27 06:43 | RADRPT ---
EXAM DATE/TIME: 06/27/2017 06:19 [facility] COMPARISON: CHEST SINGLE AP, June 26, 2017, 6:38. INDICATIONS : Patient complains of chest pain. Rib fractures. Chest tube. MEDICAL HISTORY : Hypertension. Diabetes mellitus type II. T8 and rib fractures. SURGICAL HISTORY : None. ENCOUNTER: Subsequent ACUITY: 2 weeks PAIN SCORE: 7/10 LOCATION: chest FINDINGS: Cardiomegaly, patchy basilar airspace disease, left sided pigtail catheter noted. Left sided rib frac tures are seen. I do not see a pneumothorax. Degenerative changes of the spine are noted. CONCLUSION: No significant change has occurred. Ronald Lama MD on June 27, 2017 at 6:41 Board Certified Radiologist. This report was verified electronically.
[2017-06-27 08:00] VITALS: BP 138/73; PULSE 69; RESP 18; TEMP 97.4; O2SAT 97
[2017-06-27] MEDS: INSULIN NovoLIN REGULAR SUPPLEMENTAL SCALE SQ SCH ×4 (08:00→21:30)
[2017-06-27] MEDS: ENOXAPARIN SODIUM 40 MG/0.4 ML SYRINGE SQ SCH (08:03)
[2017-06-27] MEDS: LIDOCAINE HCL 5% PATCH T-DERMAL SCH (08:03)
[2017-06-27] MEDS: BACITRACIN TOP OINT 15 GM TUBE TOP SCH ×2 (08:03→21:00)
[2017-06-27] MEDS: MAGNESIUM HYDROXIDE SUSP 30 ML CUP PO SCH ×2 (08:05→21:00)
[2017-06-27] MEDS: ALLOPURINOL 300 MG TAB PO SCH (08:05)
[2017-06-27] MEDS: DOCUSATE SODIUM 50 MG/SENNA 8.6 MG TAB PO SCH ×2 (08:05→21:00)
[2017-06-27] MEDS: FAMOTIDINE 20 MG TAB PO SCH ×2 (08:05→21:29)
[2017-06-27] MEDS: LACTULOSE SYRUP 20 GM/30 ML CUP PO SCH (08:05)
[2017-06-27] MEDS: DILTIAZEM-CD 240 MG CAP ER PO SCH (08:06)
[2017-06-27] MEDS ORDERED: ZYVO600T PO (11:31)
[2017-06-27] MEDS ORDERED: LEVA750T9 PO (11:31)
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
[2017-06-27 12:00] VITALS: BP 135/69; PULSE 67; RESP 18; TEMP 97.3; O2SAT 97
[2017-06-27 16:00] VITALS: BP 136/70; PULSE 67; RESP 18; TEMP 98.3; O2SAT 99
[2017-06-27] MEDS: ACETAMINOPHEN/HYDROcodone 325 MG/5 MG TAB PO PRN ×2 (16:02→21:29)
[2017-06-27 20:49] VITALS: BP 152/76; PULSE 65; RESP 18; TEMP 97.6; O2SAT 97
[2017-06-27] MEDS: REMOVE OLD PATCH T-DERMAL SCH (21:00)
[2017-06-28 00:07] VITALS: BP 149/78; PULSE 69; RESP 18; TEMP 96.8; O2SAT 97
[2017-06-28] MEDS: ZOLPIDEM TARTRATE 5 MG TAB PO PRN (00:09)
[2017-06-28] MEDS: CEFEPIME INJ 2,000 MG in SODIUM CHLORIDE 0.9% INJ 100 ML IV SCH ×2 (00:09→06:34)
[2017-06-28] MEDS: VANCOMYCIN INJ 1,500 MG in SODIUM CHLORID 0.9% 500 ML INJ 500 ML IV SCH (01:32)
[2017-06-28 04:00] VITALS: BP 180/82; PULSE 68; RESP 20; TEMP 97.5; O2SAT 97
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
[2017-06-28] MEDS: METHOCARBAMOL 500 MG TAB PO SCH (06:34)
[2017-06-28] MEDS: ACETAMINOPHEN/HYDROcodone 325 MG/10 MG TAB PO PRN ×2 (06:45→11:32)
[2017-06-28 08:00] VITALS: BP 137/69; PULSE 67; RESP 18; TEMP 96.8; O2SAT 96
[2017-06-28] MEDS: INSULIN NovoLIN REGULAR SUPPLEMENTAL SCALE SQ SCH ×2 (08:00→11:33)
[2017-06-28] MEDS: MAGNESIUM HYDROXIDE SUSP 30 ML CUP PO SCH (09:00)
[2017-06-28] MEDS: BACITRACIN TOP OINT 15 GM TUBE TOP SCH (09:00)
[2017-06-28] MEDS: LACTULOSE SYRUP 20 GM/30 ML CUP PO SCH (09:00)
[2017-06-28] MEDS: DOCUSATE SODIUM 50 MG/SENNA 8.6 MG TAB PO SCH (09:00)
[2017-06-28] MEDS: DILTIAZEM-CD 240 MG CAP ER PO SCH (10:40)
[2017-06-28] MEDS: ALLOPURINOL 300 MG TAB PO SCH (10:40)
[2017-06-28] MEDS: FAMOTIDINE 20 MG TAB PO SCH (10:40)
[2017-06-28] MEDS: ENOXAPARIN SODIUM 40 MG/0.4 ML SYRINGE SQ SCH (10:41)
[2017-06-28] MEDS: LIDOCAINE HCL 5% PATCH T-DERMAL SCH (10:41)
[2017-06-28 12:00] VITALS: BP 141/65; PULSE 74; RESP 18; TEMP 97; O2SAT 97
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
== END 2017-06-28 13:24 | DRG 957 ==
LOC: NEPI 16:22 → NEDA 16:41 → EDBD 16:41 → N03B 17:30 → N07B 06-19 16:19
PROVIDERS: ADMIT Surgery; ATTEND Surgery
PROC: 04V43DZ Restriction of Splenic Artery with Intraluminal Device, Percutaneous Approach (ICD-10-PCS; principal; 2017-06-10)
PROC: B4141ZZ Fluoroscopy of Superior Mesenteric Artery using Low Osmolar Contrast (ICD-10-PCS; 2017-06-10)
PROC: 30233K1 Transfusion of Nonautologous Frozen Plasma into Peripheral Vein, Percutaneous Approach (ICD-10-PCS; 2017-06-10)
PROC: 0T9B70Z Drainage of Bladder with Drainage Device, Via Natural or Artificial Opening (ICD-10-PCS; 2017-06-10)
PROC: 30233N1 Transfusion of Nonautologous Red Blood Cells into Peripheral Vein, Percutaneous Approach (ICD-10-PCS; 2017-06-10)
PROC: 5A09457 Assistance with Respiratory Ventilation, 24-96 Consecutive Hours, Continuous Positive Airway Pressure (ICD-10-PCS; 2017-06-12)
PROC: 0W9B30Z Drainage of Left Pleural Cavity with Drainage Device, Percutaneous Approach (ICD-10-PCS; 2017-06-24)
DX: S36.032A Major laceration of spleen, initial encounter (principal); R57.8 Other shock; S27.322A Contusion of lung, bilateral, initial encounter; S22.42XA Multiple fractures of ribs, left side, initial encounter for closed fracture; J96.01 Acute respiratory failure with hypoxia; J69.0 Pneumonitis due to inhalation of food and vomit; S35.298A Other injury of branches of celiac and mesenteric artery, initial encounter; I11.0 Hypertensive heart disease with heart failure; S22.068A Other fracture of T7-T8 thoracic vertebra, initial encounter for closed fracture; K52.1 Toxic gastroenteritis and colitis; J15.0 Pneumonia due to Klebsiella pneumoniae; I50.9 Heart failure, unspecified; J15.212 Pneumonia due to Methicillin resistant Staphylococcus aureus; S36.899A Unspecified injury of other intra-abdominal organs, initial encounter; D62 Acute posthemorrhagic anemia; S32.028A Other fracture of second lumbar vertebra, initial encounter for closed fracture; S32.018A Other fracture of first lumbar vertebra, initial encounter for closed fracture; S06.0X9A Concussion with loss of consciousness of unspecified duration, initial encounter; J98.11 Atelectasis; E11.65 Type 2 diabetes mellitus with hyperglycemia; I48.0 Paroxysmal atrial fibrillation; Z79.01 Long term (current) use of anticoagulants; V43.52XA Car driver injured in collision with other type car in traffic accident, initial encounter; Y92.410 Unspecified street and highway as the place of occurrence of the external cause; Y93.89 Activity, other specified; I73.9 Peripheral vascular disease, unspecified; E78.5 Hyperlipidemia, unspecified; K42.9 Umbilical hernia without obstruction or gangrene; E66.9 Obesity, unspecified; S02.2XXA Fracture of nasal bones, initial encounter for closed fracture; Z83.3 Family history of diabetes mellitus; Z80.0 Family history of malignant neoplasm of digestive organs; I87.8 Other specified disorders of veins; I87.2 Venous insufficiency (chronic) (peripheral); M10.9 Gout, unspecified; D69.59 Other secondary thrombocytopenia; E87.6 Hypokalemia; M45.4 Ankylosing spondylitis of thoracic region; S30.1XXA Contusion of abdominal wall, initial encounter; E83.39 Other disorders of phosphorus metabolism; G47.00 Insomnia, unspecified; T36.95XA Adverse effect of unspecified systemic antibiotic, initial encounter; Y92.239 Unspecified place in hospital as the place of occurrence of the external cause
CPT/HCPCS: 32557; 36245; 36247; 36248; 36430; 36600; 37243; 70450; 70486; 71010; 71250; 71260; 72072; 72125; 72128; 72131; 72170; 74176; 74177; 75726; 75774; 76937; 80048; 80053; 80076; 80202; 82435; 82565; 82805; 82947; 82948; 83735; 84100; 84132; 84295; 84484; 84520; 85007; 85014; 85018; 85025; 85027; 85384; 85610; 85730; 86403; 86850; 86900; 86901; 86920; 86927; 87070; 87077; 87147; 87186; 87205; 87493; 87641; 93306; 94002; 94003; 94150; 94640; 94664; 94667; 94668; J1170; C1729; C1760; C1769; C1887; C1894; C9132; G0269; J0692; J1650; J1940; J2250; J2270; J2405; J3010; J3370; J3430; J3480; J7030; J7040; J7050; L0200; L0484; P9016; P9017; Q9967